=== PATIENT | female | born 1945 | race Caucasian/White ===

== ENCOUNTER → 2019-04-07 10:54 | Outpatient (CLI) | payer MEDICARE, OTHER, SELFPAY ==
[2019-03-01 08:34] VITALS: BMI 30.4
--- NOTE | 2019-04-08 09:55 | PFTCOMP ---
COMPLETE PULMONARY FUNCTION TEST INTERPRETATION Brief HPI: Patient is a 73 year old female, currently under the care of myself, who presents to [facility] for complete pulmonary function tests secondary to diagnosis of dyspnea. Respiratory therapist reports good effort and reproducible results. Interpretation: Forced expiration spirometry shows no large airways obstructive ventilatory defect with an FEV1 of 136% predicted. There is no significant bronchodilator response by strict ATS criteria. Spirograms are of good quality and plateau slowly, indicating slowly emptying areas of the lungs. The respiratory flow volume loop shows decreased expiratory flow rates at high lung volumes consistent with small airways obstruction. Lung volumes by body plethysmography show an elevated total lung capacity at 7.88 L, 152% predicted. All other lung volumes are increased symmetrically. Diffusion capacity by carbon monoxide is normal at 96% predicted. The airway resistance is normal. No previous pulmonary function tests were available for review. Impression: Pulmonary function tests are grossly within normal limits. There is some stigmata of small airways disease that may result in hyperinflation, but diffusing capacity is preserved.
== END ==
PROVIDERS: Family Provider Nurse Practitioner; PCP Nurse Practitioner; Referring Provider Internal Medicine Critical Care Medicine; Visit Provider Internal Medicine Critical Care Medicine
DX: R06.00 Dyspnea, unspecified (principal)
CPT/HCPCS: 94060; 94726; 94729

== ENCOUNTER → 2019-05-16 22:38 | Outpatient (CLI) | payer MEDICARE, OTHER, SELFPAY ==
[2019-03-01 08:34] VITALS: BMI 30.4
[2019-05-16 22:45] LABS: Absolute Lymphocyte Count 1.69 X10^3/uL (0.83-4.51); Absolute Neutrophil Count 3.4 X10^3/uL (2.0-7.7); Basophil# 0.04 X10^3/uL; Basophil% 0.7 % (0-1); Eosinophil# 0.07 X10^3/uL; Eosinophils% 1.2 % (0-5); Hematocrit 36.2 % (37-47); Hemoglobin 12.2 g/dL (12.0-15.0); Lymphocyte # 1.69 X10^3/ul (4.0); Mean Corp Hgb Conc 33.7 g/dL (32-36); Mean Corpuscular Hgb 29.8 pg (27.0-32.0); Mean Corpuscular Volume 88.5 fL (81-99); Mean Platelet Vol. 10.7 fl (6.2-12.0); Monocyte# 0.39 X10^3/uL; Monocyte% 6.9 % (0-10); NRBC Flagged by Analyzer 0 % (0-5); Neutrophil # 3.43 X10^3/uL (2.7-7.7); Platelet Count 258 K/mm3 (150-450); RBC Distribution Width CV 12.9 % (11.6-14.6); RBC Distribution Width SD 41.5 fl (35.1-43.9); Red Blood Count 4.09 M/mm3 (4.2-5.4); White Blood Count 5.6 K/mm3 (4.4-11.0)
[2019-05-16 23:01] LABS: ALB/GLOB Ratio 1.4 RATIO (0.9-2.4); AST(SGOT) 19 U/L (15-37); Alanine Aminotransfer ALT/SGPT 25 U/L (13-56); Albumin, Serum 4.1 g/dL (3.2-5.0); Alkaline Phosphatase 83 U/L (45-117); Anion Gap 6 (5-15); BUN 10 mg/dL (7-18); BUN/Creat Ratio 11.7 RATIO (10-20); Chloride 112 mmol/L (98-107); Cholesterol 198 mg/dL (200); Creatinine, Serum 0.85 mg/dL (0.55-1.02); EST Glomerular Filtration Rate 70 mL/min (>60); Est Glom Filt Rate - Afr Amer 84 mL/min (>60); Glucose 94 mg/dL (74-106); High Density Lipoprotein 56 mg/dL; Magnesium 2.1 mg/dL (1.6-2.6); Potassium 3.9 mmol/L (3.5-5.1); Protein, Total 7.1 g/dL (6.4-8.2); Sodium Level 143 mmol/L (136-145); Thyroid Stim Hormone (TSH) 1.99 uIU/mL (0.358-3.74); Triglycerides 168 mg/dL; Very Low Density Lipoprotein 34 mg/dL (5-40)
== END ==
PROVIDERS: Family Provider Nurse Practitioner; PCP Nurse Practitioner; Referring Provider Nurse Practitioner; Visit Provider Nurse Practitioner
DX: R10.13 Epigastric pain (principal); M54.9 Dorsalgia, unspecified; R07.89 Other chest pain; E03.9 Hypothyroidism, unspecified
CPT/HCPCS: 80053; 80061; 83735; 84443; 84484; 85025

== ENCOUNTER → 2020-01-11 | Outpatient (CLI) | payer MEDICARE, OTHER, SELFPAY ==
[2020-01-11 19:19] VITALS: BMI 31.1
[2020-01-11 21:45] LABS: Absolute Lymphocyte Count 2.47 X10^3/uL (0.83-4.51); Absolute Neutrophil Count 4.4 X10^3/uL (2.0-7.7); Basophil# 0.03 X10^3/uL; Basophil% 0.4 % (0-1); Eosinophil# 0.09 X10^3/uL; Eosinophils% 1.2 % (0-5); Hematocrit 34.9 % (37-47); Hemoglobin 11.5 g/dL (12.0-15.0); Lymphocyte # 2.47 X10^3/ul (4.0); Lymphocyte % 33.2 % (19-41); Mean Corpuscular Hgb 28.5 pg (27.0-32.0); Mean Corpuscular Volume 86.6 fL (81-99); Mean Platelet Vol. 10.3 fl (6.2-12.0); Monocyte# 0.49 X10^3/uL; Monocyte% 6.6 % (0-10); NRBC Flagged by Analyzer 0 % (0-5); Neutrophil # 4.35 X10^3/uL (2.7-7.7); Neutrophil % 58.3 % (47-70); Platelet Count 296 K/mm3 (150-450); RBC Distribution Width CV 12.9 % (11.6-14.6); RBC Distribution Width SD 40.6 fl (35.1-43.9); Red Blood Count 4.03 M/mm3 (4.2-5.4); White Blood Count 7.5 K/mm3 (4.4-11.0)
[2020-01-11 21:57] LABS: ALB/GLOB Ratio 1.1 RATIO (0.9-2.4); AST(SGOT) 16 U/L (15-37); Alanine Aminotransfer ALT/SGPT 26 U/L (13-56); Albumin, Serum 3.8 g/dL (3.2-5.0); Alkaline Phosphatase 86 U/L (45-117); Amylase 54 U/L (25-115); Anion Gap 6 (5-15); BUN 18 mg/dL (7-18); BUN/Creat Ratio 17.8 RATIO (10-20); Calcium,Total 9.1 mg/dL (8.5-10.1); Chloride 113 mmol/L (98-107); Creatinine, Serum 1.01 mg/dL (0.55-1.02); EST Glomerular Filtration Rate 57 mL/min (>60); Est Glom Filt Rate - Afr Amer 69 mL/min (>60); Globulin 3.5 g/dL (2.2-4.2); Glucose 111 mg/dL (74-106); Lipase 193 U/L (73-393); Potassium 3.8 mmol/L (3.5-5.1); Protein, Total 7.3 g/dL (6.4-8.2); Sodium Level 144 mmol/L (136-145)
== END | disposition home or self-care (01) ==
LOC: OLS.AHF 21:21 → LABSPEC 01-12 07:14
PROVIDERS: PCP Nurse Practitioner; Referring Provider Nurse Practitioner; Visit Provider Nurse Practitioner
DX: R10.32 Left lower quadrant pain (principal); R10.13 Epigastric pain
CPT/HCPCS: 80053; 82150; 83690; 85025

== ENCOUNTER 2021-08-01 22:10 | Outpatient (CLI) | payer MEDICARE, OTHER, SELFPAY ==
[2021-08-01 22:32] LABS: Absolute Lymphocyte Count 1.88 X10^3/uL (0.83-4.51); Absolute Neutrophil Count 5.9 X10^3/uL (2.0-7.7); Basophil# 0.04 X10^3/uL; Basophil% 0.5 % (0-1); Eosinophil# 0.09 X10^3/uL; Eosinophils% 1.1 % (0-5); Hematocrit 35.6 % (37-47); Lymphocyte # 1.88 X10^3/ul (0.83-4.51); Lymphocyte % 22.2 % (19-41); Mean Corp Hgb Conc 33.7 g/dL (32-36); Mean Corpuscular Hgb 29.1 pg (27.0-32.0); Mean Corpuscular Volume 86.4 fL (81-99); Mean Platelet Vol. 10.5 fl (6.2-12.0); Monocyte# 0.56 X10^3/uL; Monocyte% 6.6 % (0-10); NRBC Flagged by Analyzer 0 % (0-5); Neutrophil # 5.87 X10^3/uL (2.7-7.7); Neutrophil % 69.4 % (47-70); Platelet Count 307 K/mm3 (150-450); RBC Distribution Width CV 12.9 % (11.6-14.6); RBC Distribution Width SD 40.4 fl (35.1-43.9); Red Blood Count 4.12 M/mm3 (4.2-5.4); White Blood Count 8.5 K/mm3 (4.4-11.0)
[2021-08-01 22:45] LABS: AST(SGOT) 18 U/L (15-37); Alanine Aminotransfer ALT/SGPT 27 U/L (13-56); Albumin, Serum 3.8 g/dL (3.2-5.0); Alkaline Phosphatase 107 U/L (45-117); Anion Gap 7 (5-15); BUN 18 mg/dL (7-18); BUN/Creat Ratio 20.4 RATIO (10-20); Calcium,Total 8.7 mg/dL (8.5-10.1); Chloride 109 mmol/L (98-107); Cholesterol 184 mg/dL (200); Creatinine, Serum 0.88 mg/dL (0.55-1.02); EST Glomerular Filtration Rate 66 mL/min (>60); Est Glom Filt Rate - Afr Amer 80 mL/min (>60); Globulin 3.9 g/dL (2.2-4.2); Glucose 118 mg/dL (74-106); High Density Lipoprotein 47 mg/dL; Potassium 3.9 mmol/L (3.5-5.1); Protein, Total 7.7 g/dL (6.4-8.2); Sodium Level 139 mmol/L (136-145); Triglycerides 181 mg/dL; Very Low Density Lipoprotein 36 mg/dL (5-40)
== END 2021-08-01 23:59 | disposition home or self-care (01) ==
PROVIDERS: PCP Nurse Practitioner; Visit Provider Nurse Practitioner
DX: K57.32 Diverticulitis of large intestine without perforation or abscess without bleeding (principal); E78.00 Pure hypercholesterolemia, unspecified
CPT/HCPCS: 80053; 80061; 85025

== ENCOUNTER → 2022-01-14 | Outpatient (CLI) | payer MEDICARE, OTHER, SELFPAY | END | disposition home or self-care (01) | PROVIDERS: PCP Nurse Practitioner; Visit Provider Nurse Practitioner | DX: M54.9 Dorsalgia, unspecified (principal) | CPT/HCPCS: 87086; 87088 ==

== ENCOUNTER → 2022-03-14 | Outpatient (CLI) | payer MEDICARE, OTHER, SELFPAY | END | disposition home or self-care (01) | PROVIDERS: PCP Nurse Practitioner; Visit Provider Nurse Practitioner | DX: M54.9 Dorsalgia, unspecified (principal) | CPT/HCPCS: 87086; 87088 ==

== ENCOUNTER → 2023-01-29 | Outpatient (CLI) | payer MEDICARE, OTHER, SELFPAY ==
[2023-01-29 22:38] LABS: Absolute Neutrophil Count 5.6 X10^3/uL (2.0-7.7); Basophil# 0.04 X10^3/uL; Basophil% 0.4 % (0-1); Eosinophil# 0.08 X10^3/uL; Eosinophils% 0.9 % (0-5); Hematocrit 37.1 % (37-47); Lymphocyte % 27.7 % (19-41); Mean Corp Hgb Conc 32.3 g/dL (32-36); Mean Corpuscular Hgb 28.8 pg (27.0-32.0); Mean Platelet Vol. 10.3 fl (6.2-12.0); Monocyte# 0.76 X10^3/uL; Monocyte% 8.4 % (0-10); NRBC Flagged by Analyzer 0 % (0-5); Neutrophil # 5.64 X10^3/uL (2.7-7.7); Neutrophil % 62.4 % (47-70); Platelet Count 291 K/mm3 (150-450); RBC Distribution Width CV 13.2 % (11.6-14.6); RBC Distribution Width SD 43.2 fl (35.1-43.9); Red Blood Count 4.17 M/mm3 (4.2-5.4)
[2023-01-29 23:02] LABS: AST(SGOT) 14 U/L (15-37); Alanine Aminotransfer ALT/SGPT 22 U/L (13-56); Albumin, Serum 3.7 g/dL (3.2-5.0); Alkaline Phosphatase 87 U/L (45-117); Anion Gap 7 (5-15); BUN 16 mg/dL (7-18); Calcium,Total 8.9 mg/dL (8.5-10.1); Chloride 109 mmol/L (98-107); Creatinine, Serum 0.89 mg/dL (0.55-1.02); EST Glomerular Filtration Rate 66 mL/min (>60); Est Glom Filt Rate - Afr Amer 79 mL/min (>60); Globulin 3.6 g/dL (2.2-4.2); Glucose 133 mg/dL (74-106); Potassium 3.5 mmol/L (3.5-5.1); Protein, Total 7.3 g/dL (6.4-8.2); Sodium Level 143 mmol/L (136-145); Thyroid Stim Hormone (TSH) 2.89 uIU/mL (0.358-3.74)
== END | disposition home or self-care (01) ==
PROVIDERS: PCP Nurse Practitioner; Visit Provider Nurse Practitioner
DX: K57.32 Diverticulitis of large intestine without perforation or abscess without bleeding (principal); M54.9 Dorsalgia, unspecified; R06.09 Other forms of dyspnea
CPT/HCPCS: 80053; 84443; 85025

== ENCOUNTER → 2024-03-14 | Outpatient (CLI) | payer MEDICARE, OTHER, SELFPAY | END | disposition home or self-care (01) | PROVIDERS: PCP Nurse Practitioner; Referring Provider Nurse Practitioner; Visit Provider Nurse Practitioner | DX: N30.90 Cystitis, unspecified without hematuria (principal); R10.30 Lower abdominal pain, unspecified | CPT/HCPCS: 87086 ==

== ENCOUNTER → 2025-03-01 | Outpatient (CLI) | payer MEDICARE, OTHER, SELFPAY ==
--- OUTSIDE RECORDS SUMMARY | 2025-03-01 21:34 | XMS RPT_ITS | CCD ---
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 mg/dL Normal 8.5-10.2 [facility] Comment on above: Order Comment: Speci men Type: BLOOD SPECIMEN Ordering Facility: [facility] Address: [address] [place] [address] Performed By: #### 2 4323-8, 0-3 #### [facility] CLIA [id number] [address] [place] [address] [place] Chloride [Moles/Vol] 104 mmol/L Normal 98-107 [facility] Comment on above: Order Comment: Speci men Type: BLOOD SPECIMEN Ordering Facility: [facility] Address: [address] [place] [address] Performed By: #### 2 4323-8, 0-3 #### [facility] CLIA [id number] [address] [place] [address] [place] CO2 [Moles/Vol] 26 mmol/L Normal 22-30 [facility] Comment on above: Order Comment: Speci men Type: BLOOD SPECIMEN Ordering Facility: [facility] Address: [address] [place] [address] Performed By: #### 2 4323-8, 3040-3 #### [facility] CLIA [id number] [address] [place] [address] [facility] Creatinine [Mass/Vol] 0.84 mg/dL Normal 0.58-0.96 [facility] Comment on above: Order Comment: Sharon negro Type: BLOOD SPECIMEN Ordering Facility: [facility] Address: [address] [place] [address] Performed By: #### 2 4323-8, 3040-3 #### [facility] CLIA [id number] [address] [place] [id number] [facility] Creatinine and Glomerular filtration rate.predicted panel (S/P/Bld) 72 mL/min/1.73m??? Normal >=60 [facility] Comment on above: Order Comment: Sharon negro Type: BLOOD SPECIMEN Ordering Facility: [facility] Address: [address] [place] [address] Result Comment: Estefany mated Glomerular Filtration Rate (eGFR) is calculated using the 2020 CKD-EPI creatinine equation. This equation utilizes serum creatinine, sex, and age as parameters. The creatinine assay has traceable calibration to isotope dilution-mass spectrometry. Refer to KDIGO guidelines for clinical interpretation. In patients with unstable renal function, e.g. those with acute kidney injury, the eGFR may not accurately reflect actual GFR. Performed By: #### 2 4323-8, 0-3 #### [facility] CLIA [id number] [address] [place] [id number] [place] [facility] Glucose [Mass/Vol] 95 mg/dL Normal 74-99 [facility] Comment on above: Order Comment: Sharon negro Type: BLOOD SPECIMEN Ordering Facility: [facility] Address: [address] [place] [address] Result Comment: The [place] Diabetes [employer] (ADA) provides guidance for cutoff values for fasting glucose and random glucose. The ADA defines fasting as no caloric intake for at least 8 hours. Fasting plasma glucose results between 100 to 125 mg/dL indicate increased risk for diabetes (prediabetes). Fasting plasma glucose results greater than or equal to 126 mg/dL meet the criteria for diagnosis of diabetes. In the absence of unequivocal hyperglycemia, results should be confirmed by repeat testing. In a patient with classic symptoms of hyperglycemia or hyperglycemic crisis, random plasma glucose results greater than or equal to 200 mg/dL meet the criteria for diagnosis of diabetes. Reference: Standards of Medical Care in Diabetes 2016, [place] [employer] Association. Diabetes Care. 2016.39(Suppl 1). Performed By: #### 2 4323-8, 3040-3 #### [facility] CLIA [id number] [address] [place] [address] [place] Potassium [Moles/Vol] 3.6 mmol/L Low 3.7-5.1 [facility] Comment on above: Order Comment: Speci men Type: BLOOD SPECIMEN Ordering Facility: [facility] Address: [address] [place] [id number] Performed By: #### 2 4323-8, 0-3 #### [facility] CLIA [id number] [address] [place] [address] [place] Protein [Mass/Vol] 6.9 g/dL Normal 6.3-8.0 [facility] Comment on above: Order Comment: Speci men Type: BLOOD SPECIMEN Ordering Facility: [facility] Address: [address] [place] [id number] Performed By: #### 2 4323-8, 0-3 #### [facility] CLIA [id number] [address] [place] [address] [place] Sodium [Moles/Vol] 141 mmol/L Normal 136-144 [facility] Comment on above: Order Comment: Speci men Type: BLOOD SPECIMEN Ordering Facility: [facility] Address: [address] [place] [address] Performed By: #### 2 4323-8, 3040-3 #### [facility] CLIA [id number] [address] [place] [address] [place] Urea nitrogen [Mass/Vol] 11 mg/dL Normal 7-21 [facility] Comment on above: Order Comment: Speci men Type: BLOOD SPECIMEN Ordering Facility: [facility] Address: [address] [place] [address] Performed By: #### 2 4323-8, 3040-3 #### [facility] CLIA [id number] [address] [place] [address] [facility] ED NOTEon 03-17-2024 ED NOTE HNO ID: [id number] Author: NGOZI SHARPE RN Service: ? Author Type: Registered Nurse Type: ED Notes Filed: 03/18/2024 11:39 Note Text: Emergency Services: ED Call Back Questionnaire SERVICE DATE: 03/17/2024 Are you feeling better? Yes Any questions about discharge instructions and follow-up care? No Were you able to make a follow up appointment? No, referred to appointment hotline Do you have any further questions? No Is there anything that we could have done differently to improve your ED visit? No No there is no one I want to recognize that was involved with my care. SIGNATURE: Ngozi Sharpe RN PATIENT NAME: Sloane Montano DATE: March 18, 2024 TIME: 11:37 AM Normal [facility] ED NOTE HNO ID: [id number] Author: ART KAMINSKI RN Service: Emergency Medicine Author Type: Registered Nurse Type: ED Notes Filed: 03/17/2024 08:25 Note Text: Bladder scan 198, pt sts she has a bladder sling and that is not uncommon for her Normal [facility] ED NOTE HNO ID: [id number] Author: HENRIK MUSTAFA RN Service: Emergency Medicine Author Type: Registered Nurse Type: ED Notes Filed: 03/17/2024 05:19 Note Text: Patient states that she started having lower abdominal pain that started Thursday. Denies N/V/D. States that she saw Dr. Avila on Thursday, who prescribed Cipro and Flagyl. Patient took one dose and felt this made it worse, so she did not take anymore. Patient has been taking Tylenol, last at 0200. States that she does have dysuria at this time. Has had intermittent fever. Normal [facility] ED PROV NOTEon 03-17-2024 ED PROV NOTE HNO ID: [id number] Author: EVI HALL MD Service: ? Author Type: Physician Type: ED Provider Notes Filed: 03/17/2024 09:28 Note Text: ED CONTINUATION OF CARE NOTE Code Status: Full Code Assumed care from: Dr. Dean Presentation / Findings / Interventions / Plan / Items to Follow Up: Patient with continued paroxysms of pain, also pain and spasms post void. CT negative, labs/UA negative. Consideration for bladder spasms. Oxybutynin ordered and therapeutic interchange given to patient. Patient counseled about results and concern for her pain. Patient anxious to leave. Counseled about sx for which to return to ED. Counseled about medication use. All questions answered. Discharged home in stable condition. Clinical Impressions as of 03/17/24927 Lower abdominal pain Bladder spasms Medical Decision Making SIGNATURE: Evi Hall MD PATIENT NAME: Sloane Montano DATE: March 17, 2024 TIME: 9:25 AM PAGER/CONTACT #: EVI HALL 03/17/24927 Normal [facility] ED PROV NOTE HNO ID: [id number] Author: LILA DEAN DO Service: Emergency Medicine Author Type: Physician Type: ED Provider Notes Filed: 03/17/2024 06:56 Note Text: ED Provider Note Patient Name: Sloane Montano : 1945 SERVICE DATE: 03/17/24 History Patient presents with: Abdominal Pain Dysuria Sloane Montano is a 78 year old female with history of diverticulitis who presents with Abdominal Pain and Dysuria. - Symptoms began Thursday. - Severity: 11/15 - Timing: constant - Quality: aching, cramping - Symptoms are associated with lower abdominal pain, fever (reports no higher than 100). - Symptoms are not associated with chest pain, diarrhea, nausea, rash, shortness of breath, vomiting, hematuria, vaginal bleeding or discharge, flank pain. Patient presents with lower abdominal pain that started on Thursday. She states that the pain is more in her lower mid and left lower abdomen. She states the pain will occasionally radiate towards her back. She states that she otherwise has no back pain or flank pain. She states that she has pain in her abdomen during and after she urinates, but states it is not burning when she urinates. She states that she has no hematuria. She states that she has had a fever up to 100. She has been taking Tylenol for her pain. She states that she has been taking no more than 500 mg every 4-6 hours. She states she has had no nausea, vomiting, or diarrhea. She states she had a bowel movement yesterday which was normal for her. She denies dark or bloody stools. She reports prior hysterectomy and cholecystectomy and also states she thinks she had an appendectomy at the same time she had the hysterectomy. Patient reports she did go and see her primary on Thursday for her symptoms. She states she had a urine test showing that her pH was high, but otherwise did not appear infected. She was then prescribed Cipro and Flagyl with her history of diverticulitis and states she took 1 dose of each Thursday night, but that the pain increased in her lower abdomen afterwards, so she has not taken any additional antibiotics other than the one dose on Thursday. PAST MEDICAL HISTORY Diagnosis Date Gallstones 02/15/2014 Headache(784.0) Migraines, not for 10 years Sigmoid diverticulitis 02/15/2014 Unspecified urinary incontinence resolved with surgery PAST SURGICAL HISTORY Procedure Laterality Date PAST SURGICAL HISTORY OF Bladder surgery (Sling) REMOVAL GALLBLADDER 11/09/2014 TOTAL ABDOMINAL HYSTERECT W/WO RMVL TUBE OVARY 1978 FOR ENDOMETRIOSIS XCAPSL CTRC RMVL INSJ IO LENS PROSTH W/O ECP Left Cataract Extraction with TORIC IOL XCAPSL CTRC RMVL INSJ IO LENS PROSTH W/O ECP Right 08/04/2018 FAMILY HISTORY Problem Relation Age of Onset Diabetes Mother TYPE II other (OSTEOARTHRITIS) Mother other (lung cancer) Mother Macular Degen Father other (EPILEPSY) Father other (PANCREATIC CANCER) Maternal Grandmother Social History Tobacco Use Smoking status: Former Current packs/day: 0.00 Types: Cigarettes Start date: 11/06/1976 Quit date: 11/06/1984 Years since quittin.3 Smokeless tobacco: Never Vaping Use Vaping status: Never Used Substance and Sexual Activity Alcohol use: No Drug use: No Sexual activity: Not on file ALLERGIES Allergen Reactions Ketorolac Other: See Comments Headaches Sulfa (Sulfonamide * Hives Review of Systems Constitutional: Positive for fever. Respiratory: Negative for shortness of breath. Cardiovascular: Negative for chest pain. Gastrointestinal: Positive for abdominal pain. Negative for diarrhea, nausea and vomiting. Genitourinary: Positive for dysuria (not burning when she urinates, but more pain in her lower abdomen during and after urinating). Negative for flank pain, hematuria, vaginal bleeding and vaginal discharge. Musculoskeletal: Negative for back pain. Skin: Negative for rash. Neurological: Negative for weakness and numbness. Psychiatric/Behavioral: Negative for agitation and confusion. Physical Exam Vitals [03/17/24 0513] BP Pulse Temp Temp src Resp SpO2 Weight Height 166/78 85 36.2 ?C (97.1 ?F) Temporal 18 95 % 81.6 kg (180 lb) -- Physical Exam Vitals and nursing note reviewed. Constitutional: Appearance: She is not toxic-appearing or diaphoretic. HENT: Head: Normocephalic and atraumatic. Eyes: General: No scleral icterus. Conjunctiva/sclera: Conjunctivae normal. Cardiovascular: Rate and Rhythm: Normal rate and regular rhythm. Pulses: Normal pulses. Pulmonary: Effort: Pulmonary effort is normal. Breath sounds: Normal breath sounds. Abdominal: General: Abdomen is flat. Bowel sounds are normal. There is no distension. Palpations: Abdomen is soft. Tenderness: There is abdominal tenderness in the suprapubic area and left lower quadrant. There is rebound. There is no right CVA tenderness, left CVA tenderne (more content not included)... Normal [facility] Lactate (Bld) [Moles/Vol]on 03-17-2024 Lactate [Moles/Vol] 1.6 mmol/L Normal 0.5-2.2 [facility] Comment on above: Order Comment: Speci men Type: BLOOD SPECIMEN Ordering Facility: [facility] Address: [address] [place] [address] Performed By: #### 3 2693-4 #### [facility] CLIA [id number] [address] [place] [address] [place] Lipase SerPl-cCncon 03-17-20 24 Lipase [Catalytic activity/Vol] 38 U/L Normal 16-61 [facility] Comment on above: Order Comment: Speci men Type: BLOOD SPECIMEN Ordering Facility: [facility] Address: [address] [place] [address] Performed By: #### 2 4323-8, 3040-3 #### [facility] CLIA [id number] [address] [place] [address] [facility] Urinalysis complete panel (U )on 03-17-2024 Bilirubin Ql (U) Negative Normal Negative [facility] Comment on above: Order Comment: Speci men Type: URINE SPECIMEN Ordering Facility: [facility] Address: [address] [place] [address] Performed By: #### 2 4356-8 #### [facility] CLIA [id number] [address] [place] [address] [facility] [place] Clarity (Unsp spec) Slightly Cloudy Abnormal Clear [facility] Comment on above: Order Comment: Speci men Type: URINE SPECIMEN Ordering Facility: [facility] Address: [address] [place] [address] Performed By: #### 2 4356-8 #### [facility] CLIA [id number] [address] [place] [address] [facility] Color (U) Yellow Normal Yellow [facility] Comment on above: Order Comment: Speci men Type: URINE SPECIMEN Ordering Facility: [facility] Address: [address] [place] [address] Performed By: #### 2 4356-8 #### [facility] CLIA [id number] [address] [place] [address] [facility] [place] Epithelial cells LM.HPF (Urine sed) [#/Area] Few Normal [facility] Comment on above: Order Comment: Speci men Type: URINE SPECIMEN Ordering Facility: [facility] Address: [address] [place] [address] Result Comment: Few Performed By: #### 2 4356-8 #### [facility] CLIA [id number] [address] [place] [address] [facility] Glucose Test strip (U) [Mass/Vol] Negative Normal Negative [facility] Comment on above: Order Comment: Speci men Type: URINE SPECIMEN Ordering Facility: [facility] Address: [address] [place], [place] [address] Performed By: #### 2 4356-8 #### [facility] CLIA [id number] [address] [place] [address] [facility] Hemoglobin Ql (U) Negative Normal Negative [facility] Comment on above: Order Comment: Speci men Type: URINE SPECIMEN Ordering Facility: [facility] Address: [address] [place] [address] Performed By: #### 2 4356-8 #### [facility] CLIA [id number] [address] [place] [address] [place] Ketones Ql (U) Negative Normal Negative [facility] Comment on above: Order Comment: Speci men Type: URINE SPECIMEN Ordering Facility: [facility] Address: [address] [place] [address] Performed By: #### 2 4356-8 #### [facility] CLIA [id number] [address] [place] [address] [place] Leukocyte esterase Test strip Ql (U) Negative Normal Negative [facility] Comment on above: Order Comment: Speci men Type: URINE SPECIMEN Ordering Facility: [facility] Address: [address] [place] [address] Performed By: #### 2 4356-8 #### [facility] CLIA [id number] [address] [place] [address] [place] Nitrite Ql (U) Negative Normal Negative [facility] Comment on above: Order Comment: Speci men Type: URINE SPECIMEN Ordering Facility: [facility] Address: [address] [place] [address] Performed By: #### 2 4356-8 #### [facility] CLIA [id number] [address] [place] [address] [facility] [place] pH (U) 7.0 [pH] Normal 5.0-8.0 [facility] Comment on above: Order Comment: Speci men Type: URINE SPECIMEN Ordering Facility: [facility] Address: [address] [place] [address] Performed By: #### 2 4356-8 #### [facility] CLIA [id number] [address] Protein (U) [Mass/Vol] Negative Normal Negative [facility] Comment on above: Order Comment: Speci men Type: URINE SPECIMEN Ordering Facility: [facility] Address: [address] [place] [address] Performed By: #### 2 4356-8 #### [facility] CLIA [id number] [address] RBC LM.HPF (Urine sed) [#/Area] 0-3 /HPF Normal 0-3 /HPF [facility] Comment on above: Order Comment: Speci men Type: URINE SPECIMEN Ordering Facility: [facility] Address: [address] [place] [address] Performed By: #### 2 4356-8 #### [facility] CLIA [id number] [address] [place] [address] Specific gravity (U) [Rel density] 1.010 Normal 1.005-1.030 [facility] Comment on above: Order Comment: Speci men Type: URINE SPECIMEN Ordering Facility: [facility] Address: [address] [place] [address] Performed By: #### 2 4356-8 #### [facility] CLIA [id number] [address] Urobilinogen Ql (U) 0.2 EU/dL Normal 0.2-1.0 EU/dL [facility] Comment on above: Order Comment: Speci men Type: URINE SPECIMEN Ordering Facility: [facility] Address: [address] [place] [address] Performed By: #### 2 4356-8 #### [facility] CLIA [id number] [address] [place] WBC LM.HPF (Urine sed) [#/Area] 0-5 /HPF Normal 0-5 /HPF [facility] Comment on above: Order Comment: Speci men Type: URINE SPECIMEN Ordering Facility: [facility] Address: [address], [place] [address] Performed By: #### 2 4356-8 #### [facility] CLIA [id number] [address] [place] [address] [place] Urine Cultureon 03-15-2024 [facility] Culture exhibits no growth. Normal Comment on above: Performed By: #### M 100.2200 #### Laboratory [address] [place], [address] Absolute lymphocyte countOrd ered By: Tru Avila on 01-29-2023 Lymphocytes Auto (Unsp spec) [#/Vol] 2.50 10*3/uL 0.83-4.51 Basophil percentageOrdered B y: Tru Avila on 01-29-2023 Basophils/100 WBC (Bld) 0.4 % 0-1 Bilirubin [Mass/Vol] 0.30 mg/dL 0.20-1.00 [facility] Comment on above: For patients on eltr ombopag therapy, use of Dimension [place] TBIL is not recommended. Chloride [Moles/Vol] 109 mmol/L 98-107 [facility] Eosinophils/100 WBC (Bld) 0.9 % 0-5 Glucose [Mass/Vol] 133 mg/dL 74-106 [facility] Comment on above: Fasting Glucose resu lt greater than or equal to 126 mg/dL suggests DIABETES MELLITUS per A.D.A. criteria. Neutrophils (Bld) [#/Vol] 5.6 10*3/uL 2.0-7.7 Neutrophils/100 WBC (Bld) 62.4 % 47-70 Potassium [Moles/Vol] 3.5 mmol/L 3.5-5.1 [facility] Protein [Mass/Vol] 7.3 g/dL 6.4-8.2 [facility] Sodium [Moles/Vol] 143 mmol/L 136-145 [facility] WBC (Bld) [#/Vol] 9.0 10*3/uL 4.4-11.0 [facility] Blood erythrocytes count (nu mber/volume)Ordered By: Tru Avila on 01-29-2023 RBC (Bld) [#/Vol] 4.17 10*6/uL 4.2-5.4 [facility] Blood hemoglobin measurement (mass/volume)Ordered By: Tru Avila on 01-29-2023 Hemoglobin (Bld) [Mass/Vol] 12.0 g/dL 12.0-15.0 Blood lymphocytes/100 leukoc ytesOrdered By: Tru Avila on 01-29-2023 Lymphocytes/100 WBC (Bld) 27.7 % 19-41 Blood monocytes/100 leukocyt esOrdered By: Tru Avila on 01-29-2023 Monocytes/100 WBC (Bld) 8.4 % 0-10 Blood platelet mean volumeOr dered By: Tru Avila on 01-29-2023 Platelet mean volume (Bld) [Entitic vol] 10.3 fL 6.2-12.0 Determination of erythrocyte mean corpuscular volume (MCV)Ordered By: Tur Avila on 01-29-2023 MCV (RBC) [Entitic vol] 89.0 fL 81-99 Hematocrit Auto (Bld) [Volum e fraction]Ordered By: Tru Avila on 01-29-2023 Hematocrit (Bld) [Volume fraction] 37.1 % 37-47 Laboratory - Chemistry and C hemistry - challengeOrdered By: Tru Avila on 01-29-2023 ALP [Catalytic activity/Vol] 87 U/L 45-117 ALT [Catalytic activity/Vol] 22 U/L 13-56 CO2 [Moles/Vol] 27.0 mmol/L 21.0-32.0 Globulin (S) [Mass/Vol] 3.6 g/dL 2.2-4.2 Urea nitrogen/Creatinine [Mass ratio] 18.0 mg/mg 10-20 Laboratory - Hematology and Cell countsOrdered By: Tru Avila on 01-29-2023 Erythrocyte distribution width (RBC) [Entitic vol] 43.2 fL 35.1-43.9 Erythrocyte distribution width (RBC) [Ratio] 13.2 % 11.6-14.6 Immature granulocytes/100 WBC (Bld) 0.200 % 0.0-0.9 Comment on above: IG% - Immature Granu locytes (promyelocytes, myelocytes and metamyelocytes) > 1% indicates that a LEFT SHIFT is Present. MCH (RBC) [Entitic mass] 28.8 pg 27.0-32.0 Nucleated RBC/100 WBC (Bld) [Ratio] 0 % 0-5 MCHC Auto (RBC) [Mass/Vol]Or dered By: Tru Avila on 01-29-2023 MCHC (RBC) [Mass/Vol] 32.3 g/dL 32-36 [facility] No Panel InformationOrdered By: Tru Avila on 01-29-2023 Estimated GFR (MDRD) Amer 79 mL/min >60 Comment on above: GFR Calc Estimated GFR (MDRD) Non-Af Amer 66 mL/min >60 Comment on above: Non- GFR Calc Thyroid Stimulating Hormone (TSH) 2.89 uIU/mL 0.358-3.74 Platelets bldOrdered By: Samir Avila on 01-29-2023 Platelets (Bld) [#/Vol] 291 10*3/uL 150-450 Serum or plasma albumin inderjit urement (mass/volume)Ordered By: Tru Avila on 01-29-2023 Albumin [Mass/Vol] 3.7 g/dL 3.2-5.0 [facility] Serum or plasma albumin/glob ulin mass ratioOrdered By: Tru Avila on 01-29-2023 Albumin/Globulin [Mass ratio] 1.0 {ratio} 0.9-2.4 Serum or plasma calcium inderjit urement (mass/volume)Ordered By: Tru Avila on 01-29-2023 Calcium [Mass/Vol] 8.9 mg/dL 8.5-10.1 [facility] Serum or plasma creatinine m easurement (mass/volume)Ordered By: Tru Avila on 01-29-2023 Creatinine [Mass/Vol] 0.89 mg/dL 0.55-1.02 [facility] Comment on above: The validity of the calculated GFR & GFRAA in patients over 70 years has not been determined. Clinical correlation is essential. Serum or plasma urea nitroge n measurement (mass/volume)Ordered By: Tru Avila on 01-29-2023 Urea nitrogen [Mass/Vol] 16 mg/dL 7-18 Thin prep Papanicolaou smear with manual screeningOrdered By: Tru Avila on 01-29-2023 Thin prep Papanicolaou smear with manual screening 14 U/L 15-37 Thin prep Papanicolaou smear with manual screening 7 5-15 CARSON SCREENINGon 03-26-2022 [facility] Laboratory - Chemistry and C hemistry - challengeon 03-14-2022 Bilirubin Ql (U) Negative Work Phone: Glucose Ql (U) Negative Work Phone: Ketones Ql (U) Negative Work Phone: pH (U) 6.5 [pH] Work Phone: Specific gravity (U) [Rel density] 1.005 Work Phone: Urobilinogen (U) [Mass/Vol] 0.8880363 mg/dL Work Phone: Laboratory - Hematology and Cell countson 03-14-2022 Hemoglobin Ql (U) Negative Work Phone: Laboratory - Specimen inform ationon 03-14-2022 Clarity (U) Clear Work Phone: Color (U) Colorless Work Phone: Laboratory - Urinalysison Nitrite Ql (U) Negative Work Phone: Protein Ql (U) Negative Work Phone: No Panel Informationon 03-14 Urine Leukocytes Negatve Work Phone: Urine Non-Hemolyzed Blood Work Phone: Laboratory - Chemistry and C hemistry - challengeon 01-14-2022 Bilirubin Ql (U) Negative Work Phone: Glucose Ql (U) Negative Work Phone: Ketones Ql (U) Negative Work Phone: [phone] pH (U) 7.0 [pH] Work Phone: Specific gravity (U) [Rel density] 1.015 Work Phone: Urobilinogen (U) [Mass/Vol] 0.6013039 mg/dL Work Phone: Laboratory - Hematology and Cell countson 01-14-2022 Hemoglobin Ql (U) Hemolyzed Work Phone: Laboratory - Specimen inform ationon 01-14-2022 Clarity (U) Clear Work Phone: Color (U) Yellow Work Phone: Laboratory - Urinalysison Nitrite Ql (U) Negative Work Phone: Protein Ql (U) Negative Work Phone: No Panel Informationon 01-14 Urine Leukocytes Positive Work Phone: Urine Non-Hemolyzed Blood Trace Work Phone: US ABD AORTAon 08-30-2020 US ABD AORTA Final Report DATE OF EXAM: Aug 30 2020 8:28AM LDU 1075 - US ABD AORTA / PROCEDURE REASON: m54.6 Physician Interpretation EXAMINATION: COMPLETE ABDOMINAL AORTA ULTRASOUND WITH DOPPLER IMAGING HISTORY: Chest pain and back pain. Rule out abdominal aortic aneurysm. TECHNIQUE: Recinos scale sonography with color Doppler and spectral Doppler (duplex) imaging of the abdominal aorta and common iliac arteries bilaterally was performed. Images were obtained and stored in a permanent archive. MQ: USAOC_1 COMPARISON: None RESULT: AORTA (AP x TV): Proximal: 2.2 cm x 2.2 cm Mid (level of renal arteries): 1.4 cm x 1.8 cm Distal: 1.3 cm x 1.5 cm Common Iliac Arteries (AP x TV): Right: 0.7 cm x 1.1 cm Left: 1 cm x 1.1 cm Atherosclerotic plaque: present Doppler: Abdominal aorta is patent with no stenosis or dissection. Normal spectral waveforms. IMPRESSION: No evidence for abdominal aortic aneurysm. Core Filer: [facility] Transcribe Date/Time: Aug 30 2020 8:39A Dictated by : JOLENE MEDINA MD This examination was interpreted and the report reviewed and electronically signed by: JOLENE MEDINA MD on Aug 30 2020 8:40AM EST Normal [facility] Culture, urine Bacteria identified Cx Nom (U) Presumptive E. coli Work Phone: Bacteria identified Cx Nom (U) Mixed Gram Pos & Gram Neg Org Work Phone: Vital Signs Date Time Vital Sign Value Performing Clinician Faci lity 01-29-2023 18:01-0400 Body height 165.1 cm [facility] 01-29-2023 18:01-0400 Body mass index (BMI) [Ratio] 30.4 kg/m2 01-29-2023 18:01-0400 Body temperature 97.7 [degF] [facility] 01-29-2023 18:01-0400 Body weight 83 kg [facility] 01-29-2023 18:01-0400 Diastolic blood pressure 70 mm[Hg] 01-29-2023 18:01-0400 Heart rate 83 /min [facility] 01-29-2023 18:01-0400 Respiratory rate 18 /min [facility] 01-29-2023 18:01-0400 SaO2% (BldA) [Mass fraction] 96 % 01-29-2023 18:01-0400 Systolic blood pressure 138 mm[Hg] 03-14-2022 16:43-0400 Body height 165.1 cm [facility] Work Phone: 03-14-2022 16:43-0400 Body mass index (BMI) [Ratio] 30.9 kg/m2 Work Phone: 03-14-2022 16:43-0400 Body temperature 97.6 [degF] [facility] Work Phone: 03-14-2022 16:43-0400 Body weight 84.36 kg [facility] Work Phone: 03-14-2022 16:43-0400 Diastolic blood pressure 90 mm[Hg] Work Phone: 03-14-2022 16:43-0400 Heart rate 81 /min [facility] Work Phone: 03-14-2022 16:43-0400 Respiratory rate 18 /min [facility] Work Phone: 03-14-2022 16:43-0400 SaO2% (BldA) [Mass fraction] 98 % Work Phone: 03-14-2022 16:43-0400 Systolic blood pressure 122 mm[Hg] Work Phone: 01-14-2022 18:06-0400 Body height 165.1 cm [facility] Work Phone: 01-14-2022 18:06-0400 Body mass index (BMI) [Ratio] 30.7 kg/m2 Work Phone: 01-14-2022 18:06-0400 Body temperature 97.3 [degF] [facility] Work Phone: 01-14-2022 18:06-0400 Body weight 83.91 kg [facility] Work Phone: 01-14-2022 18:06-0400 Diastolic blood pressure 74 mm[Hg] Work Phone: 01-14-2022 18:06-0400 Heart rate 74 /min [facility] Work Phone: 01-14-2022 18:06-0400 Respiratory rate 18 /min [facility] Work Phone: 01-14-2022 18:06-0400 SaO2% (BldA) [Mass fraction] 96 % Work Phone: 01-14-2022 18:06-0400 Systolic blood pressure 154 mm[Hg] Work Phone: 11-26-2021 16:04-0400 Body mass index (BMI) [Ratio] 30.6 kg/m2 Work Phone: 11-26-2021 16:04-0400 Body temperature 97.5 [degF] [facility] Work Phone: 11-26-2021 16:04-0400 Body weight 83.46 kg [facility] Work Phone: 11-26-2021 16:04-0400 Diastolic blood pressure 60 mm[Hg] Work Phone: 11-26-2021 16:04-0400 Heart rate 72 /min [facility] Work Phone: 11-26-2021 16:04-0400 Respiratory rate 18 /min [facility] Work Phone: 11-26-2021 16:04-0400 SaO2% (BldA) [Mass fraction] 95 % Work Phone: 11-26-2021 16:04-0400 Systolic blood pressure 118 mm[Hg] Work Phone: Encounters Encounter Date Encounter Type Care Provider Facility Start: 05-18-2024 ambulatory TRU AVILA [facility] ity:[facility] Start: 03-17-2024 End: 03-17-2024 Emergency department patient visit TRU AVILA Facility:[facility] Start: 03-14-2024 End: 03-14-2024 ambulatory Tru Avila JOB PRINTER Facility: Start: 04-22-2023 Documentation procedure Mammog nimesh Coordinator [facility] Start: 04-22-2023 Letter encounter Mammography Coordinator [facility] NOT LISTED Start: 04-21-2023 End: 04-21-2023 Subsequent hospital visit by physician Mammo/Bone Density [facility] Comment on above: Breast cancer screen ing by mammogram [Z12.31] Start: 01-29-2023 End: 01-29-2023 ambulatory Work Phone: Start: 01-29-2023 End: 01-29-2023 Patient encounter procedure -Laboratory, Specimen Work Phone: Start: 03-26-2022 End: 03-26-2022 Subsequent hospital visit by physician Mammo/Bone Density [facility] Comment on above: Encounter for screen ing mammogram for malignant neoplasm of breast [Z12.31] Start: 03-14-2022 End: 03-14-2022 ambulatory Work Phone: Start: 03-14-2022 End: 03-14-2022 Patient encounter procedure -Laboratory, Specimen Start: 03-06-2022 End: 03-06-2022 ambulatory TRU AVILA Facility:[facility] Start: 03-06-2022 End: 03-06-2022 Patient encounter procedure Rahel Rajput OD Work Phone: Ophthalmology Comment on above: Posterior vitreous d etachment of both eyes (Primary Dx); Dry eye syndrome of both eyes; Pseudophakia of both eyes; Refractive error Start: 01-14-2022 End: 01-14-2022 Patient encounter procedure -Laboratory, Specimen Procedures Date Procedure Procedure Detail Performing Clinician Start: 03-26-2022 Screening mammograph y bi 2-view breast inc cad Tru Avila NURSE RESEARCHER.INTERNAL GRINDER Work Phone: Urine culture Plan of Treatment Date Care Activity Detail Author Start: 02-06-2023 Covid-19 Vaccine ( season) Covid-19 Vaccine () [facility] Start: 02-06-2023 Influenza vaccination Influenza Vacc ine (#1) [facility] Start: 06-08-2022 Advance Directive Discussion Advance Directive Discussion [facility] Start: 06-08-2022 Depression Assessment Depression Ass essment [facility] Start: 02-06-2022 Influenza vaccination INFLUENZA (#1) [facility] Start: 08-16-2021 COVID-19 VACCINE (4 - Booster for Moderna series) COVID-19 VACCINE (4 - Booster for Moderna series) [facility] Start: 06-08-2021 ADVANCE DIRECTIVE DISCUSSION ADVANCE DIRECTIVE DISCUSSION [facility] Start: 06-08-2021 DEPRESSION ASSESSMENT DEPRESSION ASS ESSMENT [facility] Start: 09-22-2017 DIABETES SCREEN DIABETES SCREEN [facility] Start: 09-22-2017 Diabetes Screening Diabetes Screenin g [facility] Start: 11-22-2011 BONE DENSITY BONE DENSITY [facility] Start: 11-22-2011 Bone Density Screening Bone Density Screening [facility] Start: 11-22-2011 Pneumococcal Vaccine : 65+ (1 - PCV) Pneumococcal Vaccine: 65+ (1 - PCV) [facility] Start: 11-22-2011 PNEUMOCOCCAL: 65+ (1 - PCV) PNEUMOCOCCAL: 65+ (1 - PCV) [facility] Start: 01-27-2011 LIPID SCREEN LIPID SCREEN [facility] Start: 2006 RSV Vaccine (1 - 1-d ose 60+ series) RSV Vaccine (1 - 1-dose 60+ series) [facility] Start: 1996 SHINGRIX VACCINE (1 of 2) SHINGRIX V ACCINE (1 of 2) [facility] Start: 11-22-1991 COLOGUARD (FIT-DNA) COLOGUARD (FIT-D NA) [facility] Start: 11-22-1991 Colonoscopy COLONOSCOPY [facility] Start: 11-22-1991 COLORECTAL CANCER SCREENING COLORECTAL CANCER SCREENING [facility] Start: 11-22-[address] COLONOGRAPHY [facility] Start: 11-22-1991 FECAL OCCULT BLOOD FECAL OCCULT BLOO D [facility] Start: 11-22-1991 SIGMOIDOSCOPY SIGMOIDOSCOPY [facility] Start: 1965 Urine microalbumin profile [facility] Start: 1964 HEPATITIS C SCREENING HEPATITIS C CA CONCEPCIÓN [facility] Payers Date Payer Category Payer Self-pay [id number] 2022 Private Health Insurance [id number] 2017 Private Health Insurance [id number] 2017 Private Health Insurance [id number] 2012 Medicare MEDICARE MEDICAR E A AND B [id number] 2012-Present [phone] [place] [address] Medicare [id number] 2012 Medicare [id number] Private Health Insurance [facility] [id number] Unknown [id number] Social History Date Type Detail Facility Start: 08-27-2020 Tobacco smoking stat [facility] Unknown if ever smoked Start: 1945 Sex Assigned At Female [facility] Start: 03-06-2022 [facility] Start: 11-06-1976 End: 11-06-1984 History of tobacco use Current smoker [facility] Start: 11-06-1976 End: 11-06-1984 History of tobacco use Cigarette Smoker [facility] Start: 03-06-2022 Tobacco use and exposure Smokeless tobacco non-user [facility] Start: 03-06-2022 Alcohol intake Current non-dr program director/air personality of alcohol (finding) [facility] Start: 1945 Sex Assigned At Not on file [facility] Start: 02-23-2022 End: 03-26-2022 Exposure to SARS-CoV-2 (event) Not sure [facility] Start: 03-06-2022 End: 06-22-2022 History of Social function [facility] Start: 03-06-2022 End: 06-22-2022 Tobacco use panel [facility] Retired 07/07/2019 P HQ Score 0 [facility] Medical Equipment Procedure Code Equipment Code Equipment Origin al Text Equipment Identifier Dates Lens Acrysof Iq Toric Stableforce 6mm 0 D +18.5 Diopter +1.5 Cylinder - [id number] Start: 07-21-2018 Lens Acrysof Iq Toric Stableforce 6mm 0 D +18.5 Diopter +1.5 Cylinder - [id number] Start: 08-04-2018 Clinical Notes 08-04-2018 to 05-18-2024 Letter - Coordinator, Mammography - 04/22/2023 1:34 PM Vishnu Gurrola RT(R) - 04/21/2023 10:00 AM RT Javi(R) - 03/26/2022 2:00 PM Ana Cristina Rajput OD - 03/06/2022 3:03 PM EDT Note Date & Type Note Facility 05-18-2024 Note HNO ID: [id number] Author: VISHNU GOMEZ RT(Miguel) Service: Radiology Author Type: Technologist Type: Progress Notes Filed: 05/18/2024 14:52 Note Text: Radiology Service Progress Note PATIENT NAME: Sloane Montano DATE OF SERVICE: May 18, 2024 TIME: 2:52 PM PATIENT IDENTITY VERIFICATION COMPLETED USING TWO (2) IDENTIFIERS: Name and Date of confirmed by patient verbally. FALL SCREENING: Has the patient had 2 falls in the last year or 1 fall with injury or currently using an Ambulatory Assistive Device (Walker, Cane, Wheelchair, Crutches, etc.)? No PATIENT GENDER DATA: Female. status: : No status: N/A PATIENT RELEVANT IMPLANT DATA REVIEWED: Not Applicable PATIENT PRESENTS WITH AN IMPLANTABLE OR ATTACHED PAYROLL ASSOCIATE: No RADIOLOGY DEPARTMENT: Bone Density PERIPHERAL IV DATA: Not applicable SIGNED BY: RT Veronica(R) May 18, 2024 2:52 PM [facility] 04-22-2023 Miscellaneous Notes [address] [address] April 22, 2023 PID: [id number] Sloane Montano [address] [place] [address] Dear Semaj Arzolashilpaherminio, We are pleased to inform you that the results of your recent breast imaging exam on 04/21/2023 are normal. Early detection of cancer is very important. We also understand recommendations regarding breast cancer screening are controversial. Please discuss with your primary care provider which strategy is best for you and whether a mammogram is right for you. Your imaging studies and report will be kept on file at [facility] as part of your permanent medical record and are available for your continuing care. Thank you for allowing us to help in meeting your health care needs. Sincerely, Dr. Ferrell Interpreting Radiologist [facility] (Normal over 40) documented in this encounter [facility] 04-21-2023 History of Presen t illness Narrative Radiology Service Progress Note PATIENT NAME: Sloane Montano DATE OF SERVICE: April 21, 2023 TIME: 10:01 AM PATIENT IDENTITY VERIFICATION COMPLETED USING TWO (2) IDENTIFIERS: Name and Date of confirmed by patient verbally. FALL SCREENING: Has the patient had 2 falls in the last year or 1 fall with injury or currently using an Ambulatory Assistive Device (Walker, Cane, Wheelchair, Crutches, etc.)? No PATIENT GENDER DATA: Female. status: : No status: N/A PATIENT RELEVANT IMPLANT DATA REVIEWED: Not Applicable RADIOLOGY DEPARTMENT: Mammography PERIPHERAL IV DATA: Not applicable SIGNED BY: RT Veronica(R) April 21, 2023 10:01 AM documented in this encounter [facility] 03-26-2022 History of Presen t illness Narrative Radiology Service Progress Note PATIENT NAME: Sloane Montano DATE OF SERVICE: March 26, 2022 TIME: 2:23 PM PATIENT IDENTITY VERIFICATION COMPLETED USING TWO (2) IDENTIFIERS: Name and Date of confirmed by patient verbally. FALL SCREENING: Has the patient had 2 falls in the last year or 1 fall with injury or currently using an Ambulatory Assistive Device (Walker, Cane, Wheelchair, Crutches, etc.)? No PATIENT GENDER DATA: Female. status: : No status: N/A PATIENT RELEVANT IMPLANT DATA REVIEWED: Not Applicable RADIOLOGY DEPARTMENT: Mammography PERIPHERAL IV DATA: Not applicable SIGNED BY: RT Veronica(Miguel) March 26, 2022 2:23 PM documented in this encounter [facility] 03-06-2022 Note HNO ID: [id number] Author: Rahel Rajput OD Service: ? Author Type: CEMENT AND CONCRETE PLANT WORKER Type: Progress Notes Filed: 03/06/2022 3:05 PM Note Text: Assessment and Plan: 1. Posterior vitreous detachment of both eyes -Stable Posterior vitreous detachment both eyes. -Please call the office immediately if you notice flashes of light, a sudden increase in floaters, or a sudden change in vision. 2. Dry eye syndrome of both eyes -Systane Complete Artificial Tears, 1 drop, three times a day, both eyes. 3. Pseudophakia of both eyes -Intraocular lens implant in good position both eyes. 4. Refractive error -Glasses Rx given today. Rahel Rajput OD I have reviewed, confirmed, and edited as necessary the relevant ophthalmic history, review of systems, allergies, patient history, and ophthalmological examination findings as obtained by the ophthalmic technical staff. I have seen and examined Sloane Montano. I have discussed the examination findings, diagnosis, and treatment options with Sloane Montano and/or her family. I have also reviewed and agree with the assessment and plan as stated above and agree with all its relevant components. I gave the patient the opportunity to ask questions about the examination findings, diagnosis, and treatment options. [facility] 03-06-2022 History of Presen t illness Narrative Assessment and Plan: 1. Posterior vitreous detachment of both eyes -Stable Posterior vitreous detachment both eyes. -Please call the office immediately if you notice flashes of light, a sudden increase in floaters, or a sudden change in vision. 2. Dry eye syndrome of both eyes -Systane Complete Artificial Tears, 1 drop, three times a day, both eyes. 3. Pseudophakia of both eyes -Intraocular lens implant in good position both eyes. 4. Refractive error -Glasses Rx given today. Rahel Rajput, BABS I have reviewed, confirmed, and edited as necessary the relevant ophthalmic history, review of systems, allergies, patient history, and ophthalmological examination findings as obtained by the ophthalmic technical staff. I have seen and examined Sloane Montano. I have discussed the examination findings, diagnosis, and treatment options with Sloane Montano and/or her family. I have also reviewed and agree with the assessment and plan as stated above and agree with all its relevant components. I gave the patient the opportunity to ask questions about the examination findings, diagnosis, and treatment options. documented in this encounter [facility] 03-06-2022 Instructions Rahel Rajput OD - 03/06/2022 3:01 PM EDT Please call the office immediately if you notice flashes of light, a sudden increase in floaters, or a sudden change in vision. Systane Complete Artificial Tears, 1 drop, three times a day, both eyes. Please call the office with decreased vision or increased eye pain. documented in this encounter [facility] 08-04-2018 History of Past i llness Narrative Problem Noted Date Resolved Date Combined form of age-related cataract, right eye 08/04/2018 08/04/2018 Combined forms of age-related cataract of left e ye 07/06/2018 07/21/2018 Overview: Added automatically from request for surgery [id number] Combined form of age-related cataract, left eye 07/06/2018 07/21/2018 Overview: Added automatically from request for surgery [id number] Combined forms of age-related cataract of right eye 07/05/2018 08/05/2018 Regular astigmatism of left eye 07/05/2018 07/21/2018 Regular astigmatism of right eye 07/05/2018 08/04/2018 documented as of this encounter (statuses as of 03/06/2022) [facility] History of Past illness Narrative* Problem Noted Date Resolved Date Combined form of age-related cataract, right eye 08/04/2018 08/04/2018 Combined forms of age-related cataract of left e ye 07/06/2018 07/21/2018 Overview: Added automatically from request for surgery [id number] Combined form of age-related cataract, left eye 07/06/2018 07/21/2018 Overview: Added automatically from request for surgery [id number] Combined forms of age-related cataract of right eye 07/05/2018 08/05/2018 Regular astigmatism of left eye 07/05/2018 07/21/2018 Regular astigmatism of right eye 07/05/2018 08/04/2018 documented as of this encounter (statuses as of 03/27/2022) [facility] History of Past illness Narrative* Problem Noted Date Diagnosed Date Resolved Date Combined form of age-related cataract, right eye 08/04/2018 08/04/2018 Combined forms of age-relate d cataract of left eye 07/06/2018 07/21/2018 Overview: Added automatically from request for surgery [id number] Combined form of age-related cataract, left eye 07/06/2018 07/21/2018 Overview: Added automatically from request for surgery [id number] Combined forms of age-relate d cataract of right eye 07/05/2018 08/05/2018 Regular astigmatism of left eye 07/05/2018 07/21/2018 Regular astigmatism of right eye 07/05/2018 08/04/2018 documented as of this encounter (statuses as of 04/22/2023) [facility] History of Past illness Narrative* Problem Noted Date Diagnosed Date Resolved Date Combined form of age-related cataract, right eye 08/04/2018 08/04/2018 Combined forms of age-relate d cataract of left eye 07/06/2018 07/21/2018 Overview: Added automatically from request for surgery [id number] Combined form of age-related cataract, left eye 07/06/2018 07/21/2018 Overview: Added automatically from request for surgery [id number] Combined forms of age-relate d cataract of right eye 07/05/2018 08/05/2018 Regular astigmatism of left eye 07/05/2018 07/21/2018 Regular astigmatism of right eye 07/05/2018 08/04/2018 documented as of this encounter (statuses as of 04/24/2023) [facility] Diagnosis Onset Date Resolution Status Maxillary sinusitis, acute a cute Right acute otitis media acu te Cystitis acute Hematuria due to acute cystitis acute Right acute otitis media acu te Work Phone: Evaluation note* Diagnosis Posterior vitreous detachment of both eyes- Primary Vitreous degeneration Dry eye syndrome of both eyes Pseudophakia of both eyes Lens replaced by other means Refractive error Unspecified disorder of refraction and accommodation [facility] Diagnosis Onset Date Resolution Status Maxillary sinusitis, acute a cute Right acute otitis media acu te Cystitis acute Hematuria due to acute cystitis acute Right acute otitis media acu te Cystitis acute Dysuria acute Work Phone: Evaluation note* Diagnosis Onset Date Resolution Status Diverticulitis large intestine acute LLQ abdominal pain acute Work Phone: Summary Purpose Family History No Family History Records Found Relationship Condition Age at Onset Recorded Date/T otilia Not Specified Rheumatoid arthritis Unknown Malignant neoplasm of pancreas Unknown Diabetes mellitus Unknown Lupus Unknown Seizure Unknown Malignant neoplasm Unknown Hypertension Unknown Irritable bowel syndrome Unknown mother Malignant neoplasm of lung Unknown father Cardiac disease Unknown Advance Directives No Advanced Directives Records FoundNo Advanced Directives Records FoundNo Advanced Directives Records FoundNo Advanced Directives Records Found Chief Complaint and Reason for Visit Chief Complaint Sinus infection Urinary tract infection/Bladder Reason for Visit Maxillary sinusitis, acute Right acute otitis media Cystitis Hematuria due to acute cystitis Right acute otitis media Chief Complaint Sinus infection Urinary tract infection/Bladder Urinary tract infection Reason for Visit Maxillary sinusitis, acute Right acute otitis media Cystitis Hematuria due to acute cystitis Right acute otitis media Cystitis Dysuria Chief Complaint DIVERTICULTITS Reason for Visit Diverticulitis large intestine LLQ abdominal pain Medications Administered Section Active Administered Medications - up to 3 most recent administrations Medication Order MAR Action Action Date Dose Rate Site fluorescein-benoxinate 0.25-0.4 % 1 Drop (FLURESS) 1 Drop, BOTH EYES, DIRECTED, Starting on [facility] 03/06/22 at 1500, Until Thu03/07/22 at 0259, Administer for applanation tonometry. In the event of a Fluress shortage, administer [place]-Fluor 1 drop into both eyes as directed for applanation tonometry, [facility] MED ORDERS Given 03/06/2022 3:00 PM EDT 1 Drop PHENYLephrine 2.5 % 1 Drop (AK-DILATE, CHRISTINA-SYNEPHRINE) 1 Drop, BOTH EYES, DIRECTED, Starting on [facility]ia 03/06/22 at 1500, Until Thu03/07/22 at 0259, Administer for dilation PROTECT FROM LIGHT, [facility] MED ORDERS Given 03/06/2022 3:00 PM EDT 1 Drop tropicamide 1 % 1 Drop (MYDRIACYL) 1 Drop, BOTH EYES, DIRECTED, Starting on [facility]ia 03/06/22 at 1500, Until Thu03/07/22 at 0259, Administer for dilation, [facility] MED ORDERS Given 03/06/2022 3:00 PM EDT 1 Drop Additional Source Comments INFORMATION SOURCE (unrecogn ized section and content) DATE CREATED AUTHOR 08/31/2020 [facility] DATE CREATED AUTHOR AUTHOR'S ORGANIZ ATION 03/10/2022 [facility] DATE CREATED AUTHOR AUTHOR'S ORGANIZ ATION 04/05/2024 [facility] DATE CREATED AUTHOR AUTHOR'S ORGANIZ ATION 05/21/2024 [facility] Goals (unrecognized section and content) Goals may be documented in a n alternate sectionGoals may be documented in an alternate sectionGoals may be documented in an alternate section Source Comments (unrecognize d section and content) In the event this informatio n is protected by the Federal Confidentiality of Alcohol and Drug Abuse Patient Records regulations: The Federal rules restrict any use of the information to criminally investigate or prosecute any alcohol or drug abuse patient.[facility] the event this information is protected by the Federal Confidentiality of Alcohol and Drug Abuse Patient Records regulations: The Federal rules restrict any use of the information to criminally investigate or prosecute any alcohol or drug abuse patient.[facility] the event this information is protected by the Federal Confidentiality of Alcohol and Drug Abuse Patient Records regulations: The Federal rules restrict any use of the information to criminally investigate or prosecute any alcohol or drug abuse patient.[facility] the event this information is protected by the Federal Confidentiality of Alcohol and Drug Abuse Patient Records regulations: The Federal rules restrict any use of the information to criminally investigate or prosecute any alcohol or drug abuse patient.[facility] Reason for Visit (unrecogniz ed section and content) Reason Comments Floaters Both Eyes Flashes Both Eyes Care Teams (unrecognized sec tion and content) Spanish Teacher Relationship Specialty Start Date End Date Tru Avila, NURSE RESEARCHER.INTERNAL GRINDER [address] [place] [address] PCP - General Family Medicine 12/19/15 Spanish Teacher Relationship Specialty Start Date End Date Tru Avila, NURSE RESEARCHER.INTERNAL GRINDER PCP - General Family Medicine 12/19/15 Team Status: Active Member Role Status Dates Tru Avila JOB PRINTER, JOB PRINTER-C Family Provider Active Tru Avila JOB PRINTER, JOB PRINTER-C Primary Care Provider Active Team Status: Inactive Member Role Status Dates Tru Avila JOB PRINTER, JOB PRINTER-C Primary Care Pr ovider, Attending Provider, Referring Provider Active Team Status: Inactive Member Role Status Dates Tru Avila JOB PRINTER, JOB PRINTER-C Primary Care Provider, Attend ing Provider Active Spanish Teacher Relationship Specialty Start Date End Date Tru Avila, NURSE RESEARCHER.INTERNAL GRINDER [address] [place] [address] PCP - General Family Medicine 12/19/15 Spanish Teacher Relationship Specialty Start Date End Date Tru Avila, NURSE RESEARCHER.INTERNAL GRINDER [address] [place] [address] PCP - General Family Medicine 12/19/15 FOR RECORDS PERTAINING TO PATIENTS WHO ARE OR HAVE BEEN ENROLLED IN A CHEMICAL DEPENDENCY/SUBSTANCEABUSE PROGRAM, SOME INFORMATION MAY BE OMITTED. This clinical summary was aggregated from multiple sources. Caution should be exercised in using it in the provision of clinical care. This summary normalizes information from multiple sources, and as a consequence, information in this document may materially change the coding, format and clinical context of patient data. In addition, data may be omitted in some cases. CLINICAL DECISIONS SHOULD BE BASED ON THE PRIMARY CLINICAL RECORDS. [facility]. provides no warranty or guarantee of the accuracy or completeness of information in this document.
--- OUTSIDE RECORDS SUMMARY | 2025-03-01 21:34 | XMS RPT_ITS | CCD ---
Author Organization [facility] Inform ion Partnership [facility] Care Team Providers Care Funeral Arrangement Director Name Role Phone Benny CAR SEAT COVERER.Tru KASPER Primary Care Provide r TRU AVILA Primary Care Unavailable RAHEL RAJPUT Attending Unavailable Benny CAR SEAT COVERER.Tru KASPER Primary Care Provide r Benny CAR SEAT COVERER.Tru KASPER Primary Care Provide r Benny PIECE JOBBER, Tru Referring Unavailable Benny PIECE JOBBER, Tru Attending Unavailable Benny PIECE JOBBERTru Primary Care Unavailable TRU AIVLA Primary Care Unavailable EVI HALL Attending Unavailable SAMIR AVILAA Yoni Primary Care Unavailable Allergies Allergy Classification Reported Allergen(s) Allergy Type Date of Onset Reaction(s) Facility (3 sources) Sulfamethoxazole Drug Allergy 06-03-20 18 [facility] (10 sources) Sulfonamides (Antibiotic); Translations: [SULFA (SULFONAMIDE ANTIBIOTICS)] Allergy to substance 05-06-20 05 [facility] (3 sources) Trimethoprim Drug Allergy 06-03-20 18 [facility] (1 source) Flu Shot Propensity to adverse reactions 03-01-20 19 Redness, swelling of arms. [facility] Work Phone: (6 sources) Ketorolac; Translations: [KETOROLAC] Drug Allergy 07-26-19 19 Other: See Comments [facility] Work Phone: (2 sources) Influenza Vaccines Propensity to adverse reactions 03-10-20 22 Other [facility] (1 source) Sulfamethoxazole Drug Allergy 06-03-20 18 [facility] Repository (1 source) Trimethoprim Drug Allergy 06-03-20 18 [facility] Repository (1 source) Influenza Virus Vaccines Drug allergy (disorder) 03-10-20 [facility] Repository Medications Current Medications Medication Drug Class(es) [...] * Physician Interpretation * * * * [place] [address] #[id number] - CARSON SCREENING W CRYSTAL HISTORY: Patient [...] Xiao Velazco M.D. Electronically signed on: 05/19/2024 Inspection Machine Tender: NICHELLE Transcribe Date/Time: May 18 2024 2:55P Dictated by : XIAO VELAZCO MD This examination was interpreted and the report reviewed and electronically signed by: XIAO VELAZCO MD on May 19 2024 11:34AM EST [id number] Normal [facility] CBC W Auto Differential pane l (Bld)on 03-17-2024 Basophils (Bld) [#/Vol] 0.04 10*3/uL Normal <0.11 [facility] Comment on above: Order Comment: Speci men Type: BLOOD SPECIMEN Ordering Facility: [facility] Address: [address] [place] [address] Performed By: #### 5 7021-8 #### [facility] CLIA [id number] [address] [place] [address] [place] Basophils/100 WBC (Bld) 0.7 % Normal [facility] Comment on above: Order Comment: Speci men Type: BLOOD SPECIMEN Ordering Facility: [facility] Address: [address] [place] [address] Performed By: #### 5 7021-8 #### [facility] CLIA [id number] [address] [place] [address] [facility] [place] Differential cell count method Nom (Bld) Auto Normal [facility] Comment on above: Order Comment: Speci men Type: BLOOD SPECIMEN Ordering Facility: [facility] Address: [address] [place] [address] Performed By: #### 5 7021-8 #### [facility] CLIA [id number] [address] [place] [address] [place] Eosinophils (Bld) [#/Vol] 0.06 10*3/uL Normal <0.46 [facility] Comment on above: Order Comment: Speci men Type: BLOOD SPECIMEN Ordering Facility: [facility] Address: [address] [place] [address] Performed By: #### 5 7021-8 #### [facility] CLIA [id number] [address] [place] [id number] [place] Eosinophils/100 WBC (Bld) 1.0 % Normal [facility] Comment on above: Order Comment: Speci men Type: BLOOD SPECIMEN Ordering Facility: [facility] Address: [address] [place] [address] Performed By: #### 5 7021-8 #### [facility] CLIA [id number] [address] [place] [address] [place] Erythrocyte distribution width (RBC) [Ratio] 12.9 % Normal 11.5-15.0 [facility] Comment on above: Order Comment: Speci men Type: BLOOD SPECIMEN Ordering Facility: [facility] Address: [address] [place] [address] Performed By: #### 5 7021-8 #### [facility] CLIA [id number] [address] [place] [address] [place] Hematocrit (Bld) [Volume fraction] 36.7 % Normal 36.0-46.0 [facility] Comment on above: Order Comment: Speci men Type: BLOOD SPECIMEN Ordering Facility: [facility] Address: [address] [place] [address] Performed By: #### 5 7021-8 #### [facility] CLIA [id number] [address] [place] [address] [place] Hemoglobin (Bld) [Mass/Vol] 12.2 g/dL Normal 11.5-15.5 [facility] Comment on above: Order Comment: Speci men Type: BLOOD SPECIMEN Ordering Facility: [facility] Address: [address] [place] [address] Performed By: #### 5 7021-8 #### [facility] CLIA [id number] [address] [place] [address] [place] Immature granulocytes (Bld) [#/Vol] 10*3/uL Normal <0.10 [facility] Comment on above: Order Comment: Speci men Type: BLOOD SPECIMEN Ordering Facility: [facility] Address: [address] [place] [address] Performed By: #### 5 7021-8 #### [facility] CLIA [id number] [address] [place] [address] [place] Immature granulocytes/100 WBC (Bld) 0.0 % Normal [facility] Comment on above: Order Comment: Speci men Type: BLOOD SPECIMEN Ordering Facility: [facility] Address: [address] [place] [address] Performed By: #### 5 7021-8 #### [facility] CLIA [id number] [address] [place] [address] [place] Lymphocytes (Bld) [#/Vol] 1.81 10*3/uL Normal 1.00-4.00 [facility] Comment on above: Order Comment: Speci men Type: BLOOD SPECIMEN Ordering Facility: [facility] Address: [address] [place] [address] Performed By: #### 5 7021-8 #### [facility] CLIA [id number] [address] [place] [address] [place] [facility] Lymphocytes/100 WBC (Bld) 31.4 % Normal [facility] Comment on above: Order Comment: Speci men Type: BLOOD SPECIMEN Ordering Facility: [facility] Address: [address] [place] [address] Performed By: #### 5 7021-8 #### [facility] CLIA [id number] [address] [place], [place] [address] [place] [address] MCH (RBC) [Entitic mass] 29.4 pg Normal 26.0-34.0 [facility] Comment on above: Order Comment: Speci men Type: BLOOD SPECIMEN Ordering Facility: [facility] Address: [address] [place] [address] Performed By: #### 5 7021-8 #### [facility] CLIA [id number] [address] STATES OF [facility] MCHC (RBC) [Mass/Vol] 33.2 g/dL Normal 30.5-36.0 [facility] Comment on above: Order Comment: Speci men Type: BLOOD SPECIMEN Ordering Facility: [facility] Address: [address] [place] [address] Performed By: #### 5 7021-8 #### [facility] CLIA [id number] [address] [place] MCV (RBC) [Entitic vol] 88.4 fL Normal 80.0-100.0 [facility] Comment on above: Order Comment: Speci men Type: BLOOD SPECIMEN Ordering Facility: [facility] Address: [address] [place] [address] Performed By: #### 5 7021-8 #### [facility] CLIA [id number] [address] [place] [address] [facility] [place] Monocytes (Bld) [#/Vol] 0.61 10*3/uL Normal <0.87 [facility] Comment on above: Order Comment: Speci men Type: BLOOD SPECIMEN Ordering Facility: [facility] Address: [address] [place] [address] Performed By: #### 5 7021-8 #### [facility] CLIA [id number] [address] [place] [address] [place] Monocytes/100 WBC (Bld) 10.6 % Normal [facility] Comment on above: Order Comment: Speci men Type: BLOOD SPECIMEN Ordering Facility: [facility] Address: [address] [place] [address] Performed By: #### 5 7021-8 #### [facility] CLIA [id number] [address] [place] [address] [place] Neutrophils (Bld) [#/Vol] 3.24 10*3/uL Normal 1.45-7.50 [facility] Comment on above: Order Comment: Speci men Type: BLOOD SPECIMEN Ordering Facility: [facility] Address: [address] [place] [address] Performed By: #### 5 7021-8 #### [facility] CLIA [id number] [address] [place] [address] [place] Neutrophils/100 WBC (Bld) 56.3 % Normal [facility] Comment on above: Order Comment: Speci men Type: BLOOD SPECIMEN Ordering Facility: [facility] Address: [address] [place] [address] Performed By: #### 5 7021-8 #### [facility] CLIA [id number] [address] [place] [address] [place] Nucleated RBC (Bld) [#/Vol] Normal [facility] Comment on above: Order Comment: Speci men Type: BLOOD SPECIMEN Ordering Facility: [facility] Address: [address] [place] [address] Performed By: #### 5 7021-8 #### [facility] CLIA [id number] [address] [place] [address] [place] Nucleated RBC/100 WBC (Bld) [Ratio] Normal [facility] Comment on above: Order Comment: Speci men Type: BLOOD SPECIMEN Ordering Facility: [facility] Address: [address] [place] [address] Performed By: #### 5 7021-8 #### [facility] CLIA [id number] [address] [place] [address] [place] Platelet mean volume (Bld) [Entitic vol] 9.4 fL Normal 9.0-12.7 [facility] Comment on above: Order Comment: Speci men Type: BLOOD SPECIMEN Ordering Facility: [facility] Address: [address] [place] [address] Performed By: #### 5 7021-8 #### [facility] CLIA [id number] [address] [place] [address] [place] Platelets (Bld) [#/Vol] 289 10*3/uL Normal 150-400 [facility] Comment on above: Order Comment: Speci men Type: BLOOD SPECIMEN Ordering Facility: [facility] Address: [address] [place] [address] Performed By: #### 5 7021-8 #### [facility] CLIA [id number] [address] [place] [address] [place] RBC (Bld) [#/Vol] 4.15 10*6/uL Normal 3.90-5.20 [facility] Comment on above: Order Comment: Speci men Type: BLOOD SPECIMEN Ordering Facility: [facility] Address: [address] [place] [address] Performed By: #### 5 7021-8 #### [facility] CLIA [id number] [address] [place] [address] [place] WBC (Bld) [#/Vol] 5.76 10*3/uL Normal 3.70-11.00 [facility] Comment on above: Order Comment: Speci men Type: BLOOD SPECIMEN Ordering Facility: [facility] Address: [address] [place] [address] Performed By: #### 5 7021-8 #### [facility] CLIA [id number] [address] [place] [address] [place] [address] ABD/PEL W IVCONon 10-[address] ABD/PEL W IVCON * * *Final Report* * * DATE OF EXAM: Mar 17 2024 7:04AM [facility] 0530 - CT ABD/PEL W IVCON / [...] acute diverticulitis. 2. Small fat-containing umbilical hernia [facility]pection Machine T[facility] Transcribe Date/Time: Mar 17 2024 8:04A Dictated by : CHRISTIN GARRIDO MD This examination was interpreted and the report reviewed and electronically signed by: CHRISTIN GARRIDO MD on Mar 17 2024 8:11AM EST [id number] Normal [facility] Comprehensive metabolic 2000 panelon 03-17-2024 Albumin [Mass/Vol] 4.2 g/dL Normal 3.9-4.9 [facility] Comment on above: Order Comment: Speci men Type: BLOOD SPECIMEN Ordering Facility: [facility] Address: [address] [place] [address] Performed By: #### 2 4323-8, 3040-3 #### [facility] CLIA [id number] [address] [place] [address] [place] [facility] ALP [Catalytic activity/Vol] 77 U/L Normal 34-123 [facility] Comment on above: Order Comment: Speci men Type: BLOOD SPECIMEN Ordering Facility: [facility] Address: [address] [place] [address] Performed By: #### 2 4323-8, 3040-3 #### [facility] CLIA [id number] [address] [place] [address] [place] [facility] ALT With P-5'-P [Catalytic activity/Vol] 11 U/L Normal 7-38 [facility] Comment on above: Order Comment: Speci men Type: BLOOD SPECIMEN Ordering Facility: [facility] Address: [address] [place] [address] Performed By: #### 2 4323-8, 3040-3 #### [facility] CLIA [id number] [address] [place] [address] [place] [facility] Anion gap [Moles/Vol] 11 mmol/L Normal 8-15 [facility] Comment on above: Order Comment: Speci men Type: BLOOD SPECIMEN Ordering Facility: [facility] Address: [address] [place] [address] Performed By: #### 2 4323-8, 3040-3 #### [facility] CLIA [id number] [address] [place] [address] [place] AST With P-5'-P [Catalytic activity/Vol] 18 U/L Normal 13-35 [facility] Comment on above: Order Comment: Speci men Type: BLOOD SPECIMEN Ordering Facility: [facility] Address: [address] [place] [address] Performed By: #### 2 4323-8, 3040-3 #### [facility] CLIA [id number] [address] [place] [address] [place] Bilirubin [Mass/Vol] 0.5 mg/dL Normal 0.2-1.3 [facility] Comment on above: Order Comment: Speci men Type: BLOOD SPECIMEN Ordering Facility: [facility] Address: [address] [place] [address] Performed By: #### 2 4323-8, 0-3 #### [facility] CLIA [id number] [address] [place] [address] [place] Calcium [Mass/Vol] 9.2 mg/dL Normal 8.5-10.2 [facility] Comment on above: Order Comment: Speci men Type: BLOOD SPECIMEN Ordering Facility: [facility] Address: [address] [place] [address] Performed By: #### 2 4323-8, 0-3 #### [facility] CLIA [id number] [address] [place] [address] [place] Chloride [Moles/Vol] 104 mmol/L Normal 98-107 [facility] Comment on above: Order Comment: Speci men Type: BLOOD SPECIMEN Ordering Facility: [facility] Address: [address] [place] [address] Performed By: #### 2 4323-8, 0-3 #### [facility] CLIA [id number] [address] [place] [address] [place] CO2 [Moles/Vol] 26 mmol/L Normal 22-30 [facility] Comment on above: Order Comment: Speci men Type: BLOOD SPECIMEN Ordering Facility: [facility] Address: [address] [place] [address] Performed By: #### 2 4323-8, 3040-3 #### [facility] CLIA [id number] [address] [place] [address] [facility] Creatinine [Mass/Vol] 0.84 mg/dL Normal 0.58-0.96 [facility] Comment on above: Order Comment: Sharon negro Type: BLOOD SPECIMEN Ordering Facility: [facility] Address: [address] [place] [address] Performed By: #### 2 4323-8, 3040-3 #### [facility] CLIA [id number] [address] [place] [id number] [facility] Creatinine and Glomerular filtration rate.predicted panel (S/P/Bld) 72 mL/min/1.73m??? Normal >=60 [facility] Comment on above: Order Comment: Sharon negro Type: BLOOD SPECIMEN Ordering Facility: [facility] Address: [address] [place] [address] Result Comment: Estefany mated Glomerular Filtration Rate [...] Performed By: #### 2 4323-8, 0-3 #### [facility] CLIA [id number] [address] [place] [id number] [place] [facility] Glucose [Mass/Vol] 95 mg/dL Normal 74-99 [facility] Comment on above: Order Comment: Sharon negor Type: BLOOD SPECIMEN Ordering Facility: [facility] Address: [address] [place] [address] Result Comment: The [place] [employer] (ADA) provides guidance for cutoff [...] Standards of Medical Care in Diabetes 2016, [place] [employer]. Diabetes Care. 2016.39(Suppl 1). Performed By: #### 2 4323-8, 3040-3 #### [facility] CLIA [id number] [address] [place] [address] [place] Potassium [Moles/Vol] 3.6 mmol/L Low 3.7-5.1 [facility] Comment on above: Order Comment: Speci men Type: BLOOD SPECIMEN Ordering Facility: [facility] Address: [address] [place] [id number] Performed By: #### 2 4323-8, 0-3 #### [facility] CLIA [id number] [address] [place] [address] [place] Protein [Mass/Vol] 6.9 g/dL Normal 6.3-8.0 [facility] Comment on above: Order Comment: Speci men Type: BLOOD SPECIMEN Ordering Facility: [facility] Address: [address] [place] [id number] Performed By: #### 2 4323-8, 0-3 #### [facility] CLIA [id number] [address] [place] [address] [place] Sodium [Moles/Vol] 141 mmol/L Normal 136-144 [facility] Comment on above: Order Comment: Speci men Type: BLOOD SPECIMEN Ordering Facility: [facility] Address: [address] [place] [address] Performed By: #### 2 4323-8, 3040-3 #### [facility] CLIA [id number] [address] [place] [address] [place] Urea nitrogen [Mass/Vol] 11 mg/dL Normal 7-21 [facility] Comment on above: Order Comment: Speci men Type: BLOOD SPECIMEN Ordering Facility: [facility] Address: [address] [place] [address] Performed By: #### 2 4323-8, 3040-3 #### [facility] CLIA [id number] [address] [place] [address] OF [facility] ED NOTEon 03-17-2024 ED NOTE HNO ID: [id number] Author: NGOZI SHARPE RN Service: ? Author [...] March 18, 2024 TIME: 11:37 AM Normal [facility] ED NOTE HNO ID: [id number] Author: ART KAMINSKI RN Service: Emergency Medicine Author Type: Registered Nurse Type: ED Notes Filed: 03/17/2024 08:25 Note Text: Bladder scan 198, pt sts she has a bladder sling and that is not uncommon for her Normal [facility] ED NOTE HNO ID: [id number] Author: HENRIK MUSTAFA RN Service: Emergency Medicine [...] this time. Has had intermittent fever. Normal [facility] ED PROV NOTEon 03-17-2024 ED PROV NOTE HNO ID: [id number] Author: EVI HALL MD Service: ? Author [...] AM PAGER/CONTACT #: EVI HALL 03/17/24927 Normal [facility] ED PROV NOTE HNO ID: [id number] Author: LILA DEAN DO Service: Emergency Medicine [...] CVA tenderne (more content not included)... Normal [facility] Lactate (Bld) [Moles/Vol]on 03-17-2024 Lactate [Moles/Vol] 1.6 mmol/L Normal 0.5-2.2 [facility] Comment on above: Order Comment: Speci men Type: BLOOD SPECIMEN Ordering Facility: [facility] Address: [address] [place] [address] Performed By: #### 3 2693-4 #### [facility] CLIA [id number] [address] [place] [address] [place] Lipase SerPl-cCncon 03-17-20 24 Lipase [Catalytic activity/Vol] 38 U/L Normal 16-61 [facility] Comment on above: Order Comment: Speci men Type: BLOOD SPECIMEN Ordering Facility: [facility] Address: [address] [place] [address] Performed By: #### 2 4323-8, 3040-3 #### [facility] CLIA [id number] [address] [place] [address] [facility] Urinalysis complete panel (U )on 03-17-2024 Bilirubin Ql (U) Negative Normal Negative [facility] Comment on above: Order Comment: Speci men Type: URINE SPECIMEN Ordering Facility: [facility] Address: [address] [place] [address] Performed By: #### 2 4356-8 #### [facility] CLIA [id number] [address] [place] [address] [facility] [place] Clarity (Unsp spec) Slightly Cloudy Abnormal Clear [facility] Comment on above: Order Comment: Speci men Type: URINE SPECIMEN Ordering Facility: [facility] Address: [address] [place] [address] Performed By: #### 2 4356-8 #### [facility] CLIA [id number] [address] [place] [address] [facility] Color (U) Yellow Normal Yellow [facility] Comment on above: Order Comment: Speci men Type: URINE SPECIMEN Ordering Facility: [facility] Address: [address] [place] [address] Performed By: #### 2 4356-8 #### [facility] CLIA [id number] [address] [place] [address] [facility] [place] Epithelial cells LM.HPF (Urine sed) [#/Area] Few Normal [facility] Comment on above: Order Comment: Speci men Type: URINE SPECIMEN Ordering Facility: [facility] Address: [address] [place] [address] Result Comment: Few Performed By: #### 2 4356-8 #### [facility] CLIA [id number] [address] [place] [address] [facility] Glucose Test strip (U) [Mass/Vol] Negative Normal Negative [facility] Comment on above: Order Comment: Speci men Type: URINE SPECIMEN Ordering Facility: [facility] Address: [address] [place], [place] [address] Performed By: #### 2 4356-8 #### [facility] CLIA [id number] [address] [place] [address] [facility] [place] Hemoglobin Ql (U) Negative Normal Negative [facility] Comment on above: Order Comment: Speci men Type: URINE SPECIMEN Ordering Facility: [facility] Address: [address] [place] [address] Performed By: #### 2 4356-8 #### [facility] CLIA [id number] [address] [place] [address] [place] Ketones Ql (U) Negative Normal Negative [facility] Comment on above: Order Comment: Speci men Type: URINE SPECIMEN Ordering Facility: [facility] Address: [address] [place] [address] Performed By: #### 2 4356-8 #### [facility] CLIA [id number] [address] [place] [address] [place] Leukocyte esterase Test strip Ql (U) Negative Normal Negative [facility] Comment on above: Order Comment: Speci men Type: URINE SPECIMEN Ordering Facility: [facility] Address: [address] [place] [address] Performed By: #### 2 4356-8 #### [facility] CLIA [id number] [address] [place] [address] [place] Nitrite Ql (U) Negative Normal Negative [facility] Comment on above: Order Comment: Speci men Type: URINE SPECIMEN Ordering Facility: [facility] Address: [address] [place] [address] Performed By: #### 2 4356-8 #### [facility] CLIA [id number] [address] [place] [address] [facility] [place] pH (U) 7.0 [pH] Normal 5.0-8.0 [facility] Comment on above: Order Comment: Speci men Type: URINE SPECIMEN Ordering Facility: [facility] Address: [address] [place] [address] Performed By: #### 2 4356-8 #### [facility] CLIA [id number] [address] Protein (U) [Mass/Vol] Negative Normal Negative [facility] [facility] Comment on above: Order Comment: Speci men Type: URINE SPECIMEN Ordering Facility: [facility] Address: [address] [place] [address] Performed By: #### 2 4356-8 #### [facility] CLIA [id number] [address] RBC LM.HPF (Urine sed) [#/Area] 0-3 /HPF Normal 0-3 /HPF [facility] Comment on above: Order Comment: Speci men Type: URINE SPECIMEN Ordering Facility: [facility] Address: [address] [place] [address] Performed By: #### 2 4356-8 #### [facility] CLIA [id number] [address] [place] [address] Specific gravity (U) [Rel density] 1.010 Normal 1.005-1.030 [facility] Comment on above: Order Comment: Speci men Type: URINE SPECIMEN Ordering Facility: [facility] Address: [address] [place] [address] Performed By: #### 2 4356-8 #### [facility] CLIA [id number] [address] Urobilinogen Ql (U) 0.2 EU/dL Normal 0.2-1.0 EU/dL [facility] Comment on above: Order Comment: Speci men Type: URINE SPECIMEN Ordering Facility: [facility] Address: [address] [place] [address] Performed By: #### 2 4356-8 #### [facility] CLIA [id number] [address] [place] WBC LM.HPF (Urine sed) [#/Area] 0-5 /HPF Normal 0-5 /HPF [facility] Comment on above: Order Comment: Speci men Type: URINE SPECIMEN Ordering Facility: [facility] Address: [address], [place] [address] Performed By: #### 2 4356-8 #### [facility] CLIA [id number] [address] [place] [address] [place] Urine Cultureon 03-15-2024 URC Culture exhibits no growth. Normal [facility] Comment on above: Performed By: #### M 100.2200 #### [facility] Laboratory [address] [place], [address] Absolute lymphocyte countOrd ered By: Tru Avila on 01-29-2023 Lymphocytes Auto (Unsp spec) [#/Vol] 2.50 10*3/uL 0.83-4.51 [facility] Basophil percentageOrdered B y: Tru Avila on 01-29-2023 Basophils/100 WBC (Bld) 0.4 % 0-1 [facility] Bilirubin [Mass/Vol] 0.30 mg/dL 0.20-1.00 [facility] Comment on above: For patients on eltr ombopag therapy, use of Dimension [place] TBIL is not recommended. Chloride [Moles/Vol] 109 mmol/L 98-107 [facility] Eosinophils/100 WBC (Bld) 0.9 % 0-5 [facility] Glucose [Mass/Vol] 133 mg/dL 74-106 [facility] Comment on above: Fasting Glucose resu lt greater than or equal to 126 mg/dL suggests DIABETES MELLITUS per A.D.A. criteria. Neutrophils (Bld) [#/Vol] 5.6 10*3/uL 2.0-7.7 [facility] Neutrophils/100 WBC (Bld) 62.4 % 47-70 [facility] Potassium [Moles/Vol] 3.5 mmol/L 3.5-5.1 [facility] Protein [Mass/Vol] 7.3 g/dL 6.4-8.2 [facility] Sodium [Moles/Vol] 143 mmol/L 136-145 [facility] WBC (Bld) [#/Vol] 9.0 10*3/uL 4.4-11.0 [facility] Blood erythrocytes count (nu mber/volume)Ordered By: Tru Avila on 01-29-2023 RBC (Bld) [#/Vol] 4.17 10*6/uL 4.2-5.4 [facility] Blood hemoglobin measurement (mass/volume)Ordered By: Tru Avila on 01-29-2023 Hemoglobin (Bld) [Mass/Vol] 12.0 g/dL 12.0-15.0 [facility] Blood lymphocytes/100 leukoc ytesOrdered By: Tru Avila on 01-29-2023 Lymphocytes/100 WBC (Bld) 27.7 % 19-41 [facility] Blood monocytes/100 leukocyt esOrdered By: Tru Avila on 01-29-2023 Monocytes/100 WBC (Bld) 8.4 % 0-10 [facility] Blood platelet mean volumeOr dered By: Tru Avila on 01-29-2023 Platelet mean volume (Bld) [Entitic vol] 10.3 fL 6.2-12.0 [facility] Determination of erythrocyte mean corpuscular volume (MCV)Ordered By: Tru Avila on 01-29-2023 MCV (RBC) [Entitic vol] 89.0 fL 81-99 [facility] Hematocrit Auto (Bld) [Volum e fraction]Ordered By: Tru Avila on 01-29-2023 Hematocrit (Bld) [Volume fraction] 37.1 % 37-47 [facility] Laboratory - Chemistry and C hemistry - challengeOrdered By: Tru Avila on 01-29-2023 ALP [Catalytic activity/Vol] 87 U/L 45-117 [facility] ALT [Catalytic activity/Vol] 22 U/L 13-56 [facility] CO2 [Moles/Vol] 27.0 mmol/L 21.0-32.0 [facility] Globulin (S) [Mass/Vol] 3.6 g/dL 2.2-4.2 [facility] Urea nitrogen/Creatinine [Mass ratio] 18.0 mg/mg 10-20 [facility] Laboratory - Hematology and Cell countsOrdered By: Tru Avila on 01-29-2023 Erythrocyte distribution width (RBC) [Entitic vol] 43.2 fL 35.1-43.9 [facility] Erythrocyte distribution width (RBC) [Ratio] 13.2 % 11.6-14.6 [facility] Immature granulocytes/100 WBC (Bld) 0.200 % 0.0-0.9 [facility] Comment on above: IG% - Immature Granu locytes (promyelocytes, myelocytes and metamyelocytes) > 1% indicates that a LEFT SHIFT is Present. MCH (RBC) [Entitic mass] 28.8 pg 27.0-32.0 [facility] Nucleated RBC/100 WBC (Bld) [Ratio] 0 % 0-5 [facility] MCHC Auto (RBC) [Mass/Vol]Or dered By: Tru Avila on 01-29-2023 MCHC (RBC) [Mass/Vol] 32.3 g/dL 32-36 [facility] No Panel InformationOrdered By: Tru Avila on 01-29-2023 Estimated GFR (MDRD) Amer 79 mL/min >60 [facility] Comment on above: GFR Calc Estimated GFR (MDRD) Non-Af Amer 66 mL/min >60 [facility] Comment on above: Non- GFR Calc Thyroid Stimulating Hormone (TSH) 2.89 uIU/mL 0.358-3.74 [facility] Platelets bldOrdered By: Samir Avila on 01-29-2023 Platelets (Bld) [#/Vol] 291 10*3/uL 150-450 [facility] Serum or plasma albumin inderjit urement (mass/volume)Ordered By: Tru Avila on 01-29-2023 Albumin [Mass/Vol] 3.7 g/dL 3.2-5.0 [facility] Serum or plasma albumin/glob ulin mass ratioOrdered By: Tru Avila on 01-29-2023 Albumin/Globulin [Mass ratio] 1.0 {ratio} 0.9-2.4 [facility] Serum or plasma calcium inderjit urement (mass/volume)Ordered By: Tru Avila on 01-29-2023 Calcium [Mass/Vol] 8.9 mg/dL 8.5-10.1 [facility] Serum or plasma creatinine m easurement (mass/volume)Ordered By: Tru Avila on 01-29-2023 Creatinine [Mass/Vol] 0.89 mg/dL 0.55-1.02 [facility] Comment on above: The validity of the calculated GFR & GFRAA in patients over 70 years has not been determined. Clinical correlation is essential. Serum or plasma urea nitroge n measurement (mass/volume)Ordered By: Tru Avila on 01-29-2023 Urea nitrogen [Mass/Vol] 16 mg/dL 7-18 [facility] Thin prep Papanicolaou smear with manual screeningOrdered By: Tru Avila on 01-29-2023 Thin prep Papanicolaou smear with manual screening 14 U/L 15-37 [facility] Thin prep Papanicolaou smear with manual screening 7 5-15 [facility] CARSON SCREENINGon 03-26-2022 [facility] Laboratory - Chemistry and C hemistry - challengeon 03-14-2022 Bilirubin Ql (U) Negative [facility] Work Phone: Glucose Ql (U) Negative [facility] Work Phone: Ketones Ql (U) Negative [facility] Work Phone: pH (U) 6.5 [pH] [facility] Work Phone: Specific gravity (U) [Rel density] 1.005 [facility] Work Phone: Urobilinogen (U) [Mass/Vol] 0.5244571 mg/dL [facility] Work Phone: Laboratory - Hematology and Cell countson 03-14-2022 Hemoglobin Ql (U) Negative [facility] Work Phone: Laboratory - Specimen inform ationon 03-14-2022 Clarity (U) Clear [facility] Work Phone: Color (U) Colorless [facility] Work Phone: Laboratory - Urinalysison Nitrite Ql (U) Negative [facility] Work Phone: Protein Ql (U) Negative [facility] Work Phone: No Panel Informationon 03-14 Urine Leukocytes Negatve [facility] Work Phone: Urine Non-Hemolyzed Blood [facility] Work Phone: Laboratory - Chemistry and C hemistry - challengeon 01-14-2022 Bilirubin Ql (U) Negative [facility] Work Phone: Glucose Ql (U) Negative [facility] Work Phone: Ketones Ql (U) Negative [facility] Work Phone: [phone] pH (U) 7.0 [pH] [facility] Work Phone: Specific gravity (U) [Rel density] 1.015 [facility] Work Phone: Urobilinogen (U) [Mass/Vol] 0.6974872 mg/dL [facility] Work Phone: Laboratory - Hematology and Cell countson 01-14-2022 Hemoglobin Ql (U) Hemolyzed [facility] Work Phone: Laboratory - Specimen inform ationon 01-14-2022 Clarity (U) Clear [facility] Work Phone: Color (U) Yellow [facility] Work Phone: Laboratory - Urinalysison Nitrite Ql (U) Negative [facility] Work Phone: Protein Ql (U) Negative [facility] Work Phone: No Panel Informationon 01-14 Urine Leukocytes Positive [facility] Work Phone: Urine Non-Hemolyzed Blood Trace [facility] Work Phone: US ABD AORTAon 08-30-2020 US [...] IMPRESSION: No evidence for abdominal aortic aneurysm. Inspection Machine Tender: PSYCHIATRIC Transcribe Date/Time: Aug 30 2020 8:39A Dictated by : JOLENE MEDINA MD This examination was interpreted and the report reviewed and electronically signed by: JOLENE MEDINA MD on Aug 30 2020 8:40AM EST Normal [facility] Culture, urine Bacteria identified Cx Nom (U) Presumptive E. coli [facility] Work Phone: Bacteria identified Cx Nom (U) Mixed Gram Pos & Gram Neg Org [facility] Work Phone: Vital Signs Date Time Vital Sign Value Performing Clinician Faci lity 01-29-2023 18:01-0400 Body height 165.1 cm [facility] 01-29-2023 18:01-0400 Body mass index (BMI) [Ratio] 30.4 kg/m2 [facility] 01-29-2023 18:01-0400 Body temperature 97.7 [degF] [facility] 01-29-2023 18:01-0400 Body weight 83 kg [facility] 01-29-2023 18:01-0400 Diastolic blood pressure 70 mm[Hg] [facility] 01-29-2023 18:01-0400 Heart rate 83 /min [facility] 01-29-2023 18:01-0400 Respiratory rate 18 /min [facility] 01-29-2023 18:01-0400 SaO2% (BldA) [Mass fraction] 96 % [facility] 01-29-2023 18:01-0400 Systolic blood pressure 138 mm[Hg] [facility] 03-14-2022 16:43-0400 Body height 165.1 cm [facility] Work Phone: 03-14-2022 16:43-0400 Body mass index (BMI) [Ratio] 30.9 kg/m2 [facility] Work Phone: 03-14-2022 16:43-0400 Body temperature 97.6 [degF] [facility] Work Phone: 03-14-2022 16:43-0400 Body weight 84.36 kg [facility] Work Phone: 03-14-2022 16:43-0400 Diastolic blood pressure 90 mm[Hg] [facility] Work Phone: 03-14-2022 16:43-0400 Heart rate 81 /min [facility] Work Phone: 03-14-2022 16:43-0400 Respiratory rate 18 /min [facility] Work Phone: 03-14-2022 16:43-0400 SaO2% (BldA) [Mass fraction] 98 % [facility] Work Phone: 03-14-2022 16:43-0400 Systolic blood pressure 122 mm[Hg] [facility] Work Phone: 01-14-2022 18:06-0400 Body height 165.1 cm [facility] Work Phone: 01-14-2022 18:06-0400 Body mass index (BMI) [Ratio] 30.7 kg/m2 [facility] Work Phone: 01-14-2022 18:06-0400 Body temperature 97.3 [degF] [facility] Work Phone: 01-14-2022 18:06-0400 Body weight 83.91 kg [facility] Work Phone: 01-14-2022 18:06-0400 Diastolic blood pressure 74 mm[Hg] [facility] Work Phone: 01-14-2022 18:06-0400 Heart rate 74 /min [facility] Work Phone: 01-14-2022 18:06-0400 Respiratory rate 18 /min [facility] Work Phone: 01-14-2022 18:06-0400 SaO2% (BldA) [Mass fraction] 96 % [facility] Work Phone: 01-14-2022 18:06-0400 Systolic blood pressure 154 mm[Hg] [facility] Work Phone: 11-26-2021 16:04-0400 Body mass index (BMI) [Ratio] 30.6 kg/m2 [facility] Work Phone: 11-26-2021 16:04-0400 Body temperature 97.5 [degF] [facility] Work Phone: 11-26-2021 16:04-0400 Body weight 83.46 kg [facility] Work Phone: 11-26-2021 16:04-0400 Diastolic blood pressure 60 mm[Hg] [facility] Work Phone: 11-26-2021 16:04-0400 Heart rate 72 /min [facility] Work Phone: 11-26-2021 16:04-0400 Respiratory rate 18 /min [facility] Work Phone: 11-26-2021 16:04-0400 SaO2% (BldA) [Mass fraction] 95 % [facility] Work Phone: 11-26-2021 16:04-0400 Systolic blood pressure 118 mm[Hg] [facility] Work Phone: Encounters Encounter Date Encounter Type Care Provider Facility Start: 05-18-2024 ambulatory TRU AVILA [facility] ity:[facility] Start: 03-17-2024 End: 03-17-2024 Emergency department patient visit TRU AVILA Facility:[facility] Start: 03-14-2024 End: 03-14-2024 ambulatory Tru Avila PIECE JOBBER Facility:[facility] Start: 04-22-2023 Documentation procedure Mammog nimesh Coordinator [facility] Start: 04-22-2023 Letter encounter Mammography Coordinator [facility] NOT LISTED Start: 04-21-2023 End: 04-21-2023 Subsequent hospital visit by physician Mammo/Bone D[facility] Comment on above: Breast cancer screen ing by mammogram [Z12.31] Start: 01-29-2023 End: 01-29-2023 ambulatory [facility] Work Phone: Start: 01-29-2023 End: 01-29-2023 Patient encounter procedure [facility]Laboratory, Specimen Work Phone: Start: 03-26-2022 End: 03-26-2022 Subsequent hospital visit by physician Mammo/Bone D[facility] Comment on above: Encounter for screen ing mammogram for malignant neoplasm of breast [Z12.31] Start: 03-14-2022 End: 03-14-2022 ambulatory [facility] Work Phone: Start: 03-14-2022 End: 03-14-2022 Patient encounter procedure [facility]Laboratory, Specimen Start: 03-06-2022 End: 03-06-2022 ambulatory TRU AVILA Facility:[facility] Start: 03-06-2022 End: 03-06-2022 Patient encounter procedure Rahel Rajput OD Work Phone: Ophthalmology Comment on above: Posterior vitreous d etachment of both eyes (Primary Dx); Dry eye syndrome of both eyes; Pseudophakia of both eyes; Refractive error Start: 01-14-2022 End: 01-14-2022 Patient encounter procedure [facility], Specimen Procedures Date Procedure Procedure Detail Performing Clinician Start: 03-26-2022 Screening mammograph y bi 2-view breast inc cad Tru Avila CAR SEAT COVERER.EMBROIDERY FINISHER Work Phone: Urine culture Plan of Treatment Date Care Activity Detail Author Start: 02-06-2023 Covid-19 Vaccine ( season) Covid-19 Vaccine () [facility] Start: 02-06-2023 Influenza vaccination Influenza Vacc ine (#1) [facility] Start: 06-08-2022 Advance Directive Discussion Advance Directive Discussion [facility] Start: 06-08-2022 Depression Assessment Depression Ass essment [facility] Start: 02-06-2022 Influenza vaccination INFLUENZA (#1) [facility] Start: 08-16-2021 COVID-19 VACCINE (4 - Booster for Moderna series) COVID-19 VACCINE (4 - Booster for Moderna series) [facility] Start: 06-08-2021 ADVANCE DIRECTIVE DISCUSSION ADVANCE DIRECTIVE DISCUSSION [facility] Start: 06-08-2021 DEPRESSION ASSESSMENT DEPRESSION ASS ESSMENT [facility] Start: 09-22-2017 DIABETES SCREEN DIABETES SCREEN [facility] Start: 09-22-2017 Diabetes Screening Diabetes Screenin g [facility] Start: 11-22-2011 BONE DENSITY BONE DENSITY [facility] Start: 11-22-2011 Bone Density Screening Bone Density Screening [facility] Start: 11-22-2011 Pneumococcal Vaccine : 65+ (1 - PCV) Pneumococcal Vaccine: 65+ (1 - PCV) [facility] Start: 11-22-2011 PNEUMOCOCCAL: 65+ (1 - PCV) PNEUMOCOCCAL: 65+ (1 - PCV) [facility] Start: 01-27-2011 LIPID SCREEN LIPID SCREEN [facility] Start: 2006 RSV Vaccine (1 - 1-d ose 60+ series) RSV Vaccine (1 - 1-dose 60+ series) [facility] Start: 1996 SHINGRIX VACCINE (1 of 2) SHINGRIX V ACCINE (1 of 2) [facility] Start: 11-22-1991 COLOGUARD (FIT-DNA) COLOGUARD (FIT-D NA) [facility] Start: 11-22-1991 Colonoscopy COLONOSCOPY [facility] Start: 11-22-1991 COLORECTAL CANCER SCREENING COLORECTAL CANCER SCREENING [facility] Start: 11-22-[address] COLONOGRAPHY [facility] Start: 11-22-1991 FECAL OCCULT BLOOD FECAL OCCULT BLOO D [facility] Start: 11-22-1991 SIGMOIDOSCOPY SIGMOIDOSCOPY [facility] Start: 1965 Urine microalbumin profile [facility] Start: 1964 HEPATITIS C SCREENING HEPATITIS C [place] CONCEPCIÓN [facility] Payers Date Payer Category Payer Self-pay [id number] 2022 Private Health Insurance [id number] 2017 Private Health Insurance [id number] 2017 Private Health Insurance [id number] 2012 Medicare MEDICARE MEDICAR E A AND B [id number] 2012-Present [phone] [place] [address] Medicare [id number] 2012 Medicare [id number] Private Health Insurance [facility] [id number] Unknown [id number] Social History Date Type Detail Facility Start: 08-27-2020 Tobacco smoking stat [facility] Unknown if ever smoked [facility] Start: 1945 Sex Assigned At Female [facility] Start: 03-06-2022 [facility] Start: 11-06-1976 End: 11-06-1984 History of tobacco use Current smoker [facility] Start: 11-06-1976 End: 11-06-1984 History of tobacco use Cigarette Smoker [facility] Start: 03-06-2022 Tobacco use and exposure Smokeless tobacco non-user [facility] Start: 03-06-2022 Alcohol intake Current non-dr [place] [employer] [place] (finding) [facility] Start: 1945 Sex Assigned At Not on file [facility] Start: 02-23-2022 End: 03-26-2022 Exposure to SARS-CoV-2 (event) Not sure [facility] Start: 03-06-2022 End: 06-22-2022 History of Social function [facility] Start: 03-06-2022 End: 06-22-2022 Tobacco use panel [facility] Retired 07/07/2019 P HQ Score 0 [facility] Medical Equipment Procedure Code Equipment Code Equipment Origin al Text Equipment Identifier Dates Lens Acrysof Iq Toric Stableforce 6mm 0 D +18.5 Diopter +1.5 Cylinder - [id number] Start: 07-21-2018 Lens Acrysof Iq Toric Stableforce 6mm 0 D +18.5 Diopter +1.5 Cylinder - [id number] Start: 08-04-2018 Clinical Notes 08-04-2018 to 05-18-2024 Letter - Coordinator, Mammography - 04/22/2023 1:34 PM Vishnu Gurrola RT(R) - 04/21/2023 10:00 AM RT Javi(R) - 03/26/2022 2:00 PM Ana Cristina Rajput OD - 03/06/2022 3:03 PM EDT Note Date & Type Note Facility 05-18-2024 Note HNO ID: [id number] Author: VISHNU GOMEZ RT(Miguel) Service: Radiology Author [...] PATIENT PRESENTS WITH AN IMPLANTABLE OR ATTACHED LYE BOILER: No RADIOLOGY DEPARTMENT: Bone Density PERIPHERAL IV DATA: Not applicable SIGNED BY: RT Veronica(R) May 18, 2024 2:52 PM [facility] 04-22-2023 Miscellaneous Notes [address] [address] April 22, 2023 PID: [id number] Sloane Montano [address] [place] [address] Dear Semaj Arzolashilpaherminio, We are pleased to [...] report will be kept on file at [facility] as part of your permanent medical record and are available for your continuing care. Thank you for allowing us to help in meeting your health care needs. Sincerely, Dr. Ferrell Interpreting Radiologist [facility] (Normal over 40) documented in this encounter [facility] 04-21-2023 History of Presen t illness [...] 2023 10:01 AM documented in this encounter [facility] 03-26-2022 History of Presen t illness [...] 2022 2:23 PM documented in this encounter [facility] 03-06-2022 Note HNO ID: [id number] Author: Rahel Rajput OD Service: ? Author Type: INSPECTOR WEIGHTS AND MEASURES Type: Progress Notes Filed: 03/06/2022 3:05 PM [...] the examination findings, diagnosis, and treatment options. [facility] 03-06-2022 History of Presen t illness [...] and treatment options. documented in this encounter [facility] 03-06-2022 Instructions Rahel Rajput OD - 03/06/2022 3:01 PM EDT Please call the office immediately if you notice flashes of light, a sudden increase in floaters, or a sudden change in vision. Systane Complete Artificial Tears, 1 drop, three times a day, both eyes. Please call the office with decreased vision or increased eye pain. documented in this encounter [facility] 08-04-2018 History of Past i llness Narrative Problem Noted Date Resolved Date Combined form of age-related cataract, right eye 08/04/2018 08/04/2018 Combined forms of age-related cataract of left e ye 07/06/2018 07/21/2018 Overview: Added automatically from request for surgery [id number] Combined form of age-related cataract, left eye 07/06/2018 07/21/2018 Overview: Added automatically from request for surgery [id number] Combined forms of age-related cataract of right eye 07/05/2018 08/05/2018 Regular astigmatism of left eye 07/05/2018 07/21/2018 Regular astigmatism of right eye 07/05/2018 08/04/2018 documented as of this encounter (statuses as of 03/06/2022) [facility] History of Past illness Narrative* Problem Noted Date Resolved Date Combined form of age-related cataract, right eye 08/04/2018 08/04/2018 Combined forms of age-related cataract of left e ye 07/06/2018 07/21/2018 Overview: Added automatically from request for surgery [id number] Combined form of age-related cataract, left eye 07/06/2018 07/21/2018 Overview: Added automatically from request for surgery [id number] Combined forms of age-related cataract of right eye 07/05/2018 08/05/2018 Regular astigmatism of left eye 07/05/2018 07/21/2018 Regular astigmatism of right eye 07/05/2018 08/04/2018 documented as of this encounter (statuses as of 03/27/2022) [facility] History of Past illness Narrative* Problem Noted Date Diagnosed Date Resolved Date Combined form of age-related cataract, right eye 08/04/2018 08/04/2018 Combined forms of age-relate d cataract of left eye 07/06/2018 07/21/2018 Overview: Added automatically from request for surgery [id number] Combined form of age-related cataract, left eye 07/06/2018 07/21/2018 Overview: Added automatically from request for surgery [id number] Combined forms of age-relate d cataract of right eye 07/05/2018 08/05/2018 Regular astigmatism of left eye 07/05/2018 07/21/2018 Regular astigmatism of right eye 07/05/2018 08/04/2018 documented as of this encounter (statuses as of 04/22/2023) [facility] History of Past illness Narrative* Problem Noted Date Diagnosed Date Resolved Date Combined form of age-related cataract, right eye 08/04/2018 08/04/2018 Combined forms of age-relate d cataract of left eye 07/06/2018 07/21/2018 Overview: Added automatically from request for surgery [id number] Combined form of age-related cataract, left eye 07/06/2018 07/21/2018 Overview: Added automatically from request for surgery [id number] Combined forms of age-relate d cataract of right eye 07/05/2018 08/05/2018 Regular astigmatism of left eye 07/05/2018 07/21/2018 Regular astigmatism of right eye 07/05/2018 08/04/2018 documented as of this encounter (statuses as of 04/24/2023) [facility] Diagnosis Onset Date Resolution Status Maxillary sinusitis, acute a cute Right acute otitis media acu te Cystitis acute Hematuria due to acute cystitis acute Right acute otitis media acu te [facility] Work Phone: Evaluation note* Diagnosis Posterior vitreous detachment of both eyes- Primary Vitreous degeneration Dry eye syndrome of both eyes Pseudophakia of both eyes Lens replaced by other means Refractive error Unspecified disorder of refraction and accommodation documented in this encounter [facility] Diagnosis Onset Date Resolution Status Maxillary sinusitis, acute a cute Right acute otitis media acu te Cystitis acute Hematuria due to acute cystitis acute Right acute otitis media acu te Cystitis acute Dysuria acute [facility] Work Phone: Evaluation note* Diagnosis Onset Date Resolution Status Diverticulitis large intestine acute LLQ abdominal pain acute [facility] Work Phone: Summary Purpose Family History No [...] the event of a Fluress shortage, administer Donalds-Fluor 1 drop into both eyes as directed [...] section and content) DATE CREATED AUTHOR 08/31/2020 [facility] DATE CREATED AUTHOR AUTHOR'S ORGANIZ ATION 03/10/2022 [facility] DATE CREATED AUTHOR AUTHOR'S ORGANIZ ATION 04/05/2024 [facility] DATE CREATED AUTHOR AUTHOR'S ORGANIZ ATION 05/21/2024 [facility] Goals (unrecognized section and content) Goals [...] or prosecute any alcohol or drug abuse patient.[facility] the event this information is protected by the Federal Confidentiality of Alcohol and Drug Abuse Patient Records regulations: The Federal rules restrict any use of the information to criminally investigate or prosecute any alcohol or drug abuse patient.[facility] the event this information is protected by the Federal Confidentiality of Alcohol and Drug Abuse Patient Records regulations: The Federal rules restrict any use of the information to criminally investigate or prosecute any alcohol or drug abuse patient.[facility] the event this information is protected by the Federal Confidentiality of Alcohol and Drug Abuse Patient Records regulations: The Federal rules restrict any use of the information to criminally investigate or prosecute any alcohol or drug abuse patient.[facility] Reason for Visit (unrecogniz ed section and content) Reason Comments Floaters Both Eyes Flashes Both Eyes Care Teams (unrecognized sec tion and content) Funeral Arrangement Director Relationship Specialty Start Date End Date Tru Avila, CAR SEAT COVERER.EMBROIDERY FINISHER [address] [place] [address] PCP - General Family Medicine 12/19/15 Funeral Arrangement Director Relationship Specialty Start Date End Date Tru Avila, CAR SEAT COVERER.EMBROIDERY FINISHER PCP - General Family Medicine 12/19/15 Team Status: Active Member Role Status Dates Tru Avila PIECE JOBBER, PIECE JOBBER-C Family Provider Active Tru Avila PIECE JOBBER, PIECE JOBBER-C Primary Care Provider Active Team Status: Inactive Member Role Status Dates Tru Avila PIECE JOBBER, PIECE JOBBER-C Primary Care Pr ovider, Attending Provider, Referring Provider Active Team Status: Inactive Member Role Status Dates Tru Avila PIECE JOBBER, PIECE JOBBER-C Primary Care Provider, Attend ing Provider Active Funeral Arrangement Director Relationship Specialty Start Date End Date Tru Avila, CAR SEAT COVERER.EMBROIDERY FINISHER [address] [place] [address] PCP - General Family Medicine 12/19/15 Funeral Arrangement Director Relationship Specialty Start Date End Date Tru Avila, CAR SEAT COVERER.EMBROIDERY FINISHER [address] [place] [address] PCP - General Family Medicine [...] BE BASED ON THE PRIMARY CLINICAL RECORDS. [facility]. provides no warranty or guarantee of the accuracy or completeness of information in this document.
[2025-03-01 22:04] LABS: Hematocrit 37.9 % (37-47); Hemoglobin 13.2 g/dL (12.0-15.0); Immature Granulocytes Count 0.020 X10^3/uL (0.0-0.0); Mean Corp Hgb Conc 34.8 g/dL (32-36); Mean Corpuscular Volume 86.5 fL (81-99); Mean Platelet Vol. 10.4 fl (6.2-12.0); NRBC Flagged by Analyzer 0 % (0-5); Platelet Count 347 K/mm3 (150-450); RBC Distribution Width CV 13.2 % (11.6-14.6); RBC Distribution Width SD 41.2 fl (35.1-43.9); Red Blood Count 4.38 M/mm3 (4.2-5.4); White Blood Count 7.9 K/mm3 (4.4-11.0)
[2025-03-01 22:25] LABS: AST(SGOT) 21 U/L (<=31); Alanine Aminotransfer ALT/SGPT 14 U/L (<=34); Albumin, Serum 4.4 g/dL (3.4-4.8); Alkaline Phosphatase 83 U/L (35-104); Anion Gap 14 (5-15); BUN 29 mg/dL (4-19); BUN/Creat Ratio 42.2 RATIO (10-20); Calcium,Total 9.8 mg/dL (7.6-11.0); Carbon Dioxide 20.4 mmol/L (21.0-32.0); Chloride 105 mmol/L (98-108); Globulin 3.2 g/dL (2.2-4.2); Glucose 100 mg/dL (70-99); Magnesium 2.2 mg/dL (1.5-2.2); Potassium 3.9 mmol/L (3.3-5.1)
[2025-03-01 23:06] LABS: PTHIN 64 pg/mL (11-61)
[2025-03-02 14:00] LABS: Vitamin D,25 Hydroxy 35.0 ng/mL (30-100)
== END | disposition home or self-care (01) ==
PROVIDERS: PCP Nurse Practitioner; Visit Provider Nurse Practitioner
DX: E55.9 Vitamin D deficiency, unspecified (principal); R79.89 Other specified abnormal findings of blood chemistry; R61 Generalized hyperhidrosis; D64.9 Anemia, unspecified; R25.2 Cramp and spasm; E87.6 Hypokalemia; R45.83 Excessive crying of child, adolescent or adult
CPT/HCPCS: 80053; 82306; 83735; 83970; 84443; 85025

== ENCOUNTER → 2025-05-16 | Outpatient (CLI) | payer MEDICARE, OTHER, SELFPAY ==
--- OUTSIDE RECORDS SUMMARY | 2025-05-16 21:50 | XMS RPT_ITS | CCD ---
Author Organization [facility] Inform ion Partnership [facility] Care Team Providers Care Route Sales Delivery Drivers Supervisor Name Role Phone Benny BANK CREDIT CARD COLLECTION CLERK.Tru KASPER Primary Care Provide r TRU AVILA Primary Care Unavailable RAHEL RAJPUT Attending Unavailable Benny BANK CREDIT CARD COLLECTION CLERK.MAJO Tru L Primary Care Provide r Benny BANK CREDIT CARD COLLECTION CLERK.Tru KASPER Primary Care Provide r TRU AVILA Primary Care Unavailable EVI HALL Attending Unavailable TRU AVILA Primary Care Unavailable Benny GPS FIELD DATA COLLECTOR, Tru Attending Unavailable Benny GPS FIELD DATA COLLECTOR, Tru Primary Care Unavailable Allergies Allergy Classification Reported Allergen(s) Allergy Type Date of Onset Reaction(s) Facility (3 sources) Sulfamethoxazole Drug Allergy 06-03-20 18 [facility] (10 sources) Sulfonamides (Antibiotic); Translations: [SULFA (SULFONAMIDE ANTIBIOTICS)] Allergy to substance 05-06-20 05 [facility] (3 sources) Trimethoprim Drug Allergy 06-03-20 18 [facility] (1 source) Flu Shot Propensity to adverse reactions 03-01-20 19 Redness, swelling of arms. [facility] Work Phone: (6 sources) Ketorolac; Translations: [KETOROLAC] Drug Allergy 07-26-19 19 Other: See Comments [facility] Work Phone: (2 sources) Influenza Vaccines Propensity to adverse reactions 03-10-20 Other [facility] (1 source) Sulfamethoxazole Drug Allergy 06-03-20 18 [facility] (1 source) Trimethoprim Drug Allergy 06-03-20 18 [facility] (1 source) Influenza Virus Vaccines Drug allergy (disorder) 03-10-20 [facility] Medications Current Medications Medication Drug Class(es) [...] PO THREE TIMES A DAY 30 January 29, 2023 12:00am Start: 08-01-2021 End: 08-11-2021 take 250 mg by mouth three times daily Metronidazole Discontinued 250 MG PO THREE TIMES A DAY 30 August 01, 2021 1:00am August 11, 2021 1:04am Start: 01-11-2020 End: 01-21-2020 take 250 mg by mouth three times daily Metronidazole Discontinued 250 MG PO THREE TIMES A DAY 30 January 11, 2020 12:00am January 21, 2020 12:02am phenylephrine [...] MG PO DAILY May 16, 2019 1:00am August 01, 2021 7:18pm methocarbamol 500 mg oral tablet (7 sources) Muscle Relaxant Start: 06-03-2018 End: 11-26-2021 take 1 tablet by mouth three times daily for muscle spasms methocarbamol (ROBAXIN) 500 mg tablet TAKE 1 TABLET BY MOUTH 3 TIMES A DAY FOR MUSCLE SPASM 1 06/03/2018 Active Comment on above: TAKE 1 TABLET BY TOI 3 TIMES A DAY FOR MUSCLE SPASM [...] pain; Translations: [Chest pain, unspecified] 05-16-2019 Episodic Nutritional deficiencies (1 source) Vitamin D deficiency, unspecified; Translations: [Vitamin D deficiency, unspecified] Onset: 03-31-2025 Chronic Other bone disease and musculoskeletal deformities (3 [...] [Dorsalgia, unspecified] 02-28-2019 Episodic Urinary tract infections (6 sources) Hematuria co-occurrent and due to acute cystitis; Translations: [Acute cystitis with hematuria] 02-28-2019 Episodic Past or Other Problems Problem [...] Test Name Value Interpretation Reference Range Facility Vitamin D,25 Hydroxyon 03-02 Vitamin D 25-OH 35.0 ng/mL Normal 30-100 [facility] Comment on above: Result Comment: Vilma min D Status Deficiency: <20 ng/mL (50nmol/L) Insufficiency: 20-30 ng/mL (50-75 nmol/L) Sufficiency: 30-100 ng/mL (75-250 nmol/L) Toxicity: >100 ng/mL (>250 nmol/L) Performed By: #### L 506.1001 #### [facility] [address] [place], [address] CBC W/Diff, Automatedon - Absolute Lymph 2.34 X10 3/uL Normal 0.83-4.51 [facility] Comment on above: Performed By: #### L 501.5200, L509.1000, L100.0100, L500.4050, L501.9520 #### [facility] [address] [place], [address] Absolute Neut 4.8 X10 3/uL Normal 2.0-7.7 [facility] Comment on above: Performed By: #### L 501.5200, L509.1000, L100.0100, L500.4050, L501.9520 #### [facility] [address] [place], [address] Basophils/100 WBC (Bld) 0.5 % Normal 0-1 [facility] Comment on above: Performed By: #### L 501.5200, L509.1000, L100.0100, L500.4050, L501.9520 #### [facility] [address] [place], [address] Eosinophils/100 WBC (Bld) 1.0 % Normal 0-5 [facility] Comment on above: Performed By: #### L 501.5200, L509.1000, L100.0100, L500.4050, L501.9520 #### [facility] [address] [place], [address] Erythrocyte distribution width (RBC) [Ratio] 13.2 % Normal 11.6-14.6 [facility] Comment on above: Performed By: #### L 501.5200, L509.1000, L100.0100, L500.4050, L501.9520 #### [facility] [address] [place], [address] Hematocrit (Bld) [Volume fraction] 37.9 % Normal 37-47 [facility] Comment on above: Performed By: #### L 501.5200, L509.1000, L100.0100, L500.4050, L501.9520 #### [facility] [address] [place], [address] Hemoglobin (Bld) [Mass/Vol] 13.2 g/dL Normal 12.0-15.0 [facility] Comment on above: Performed By: #### L 501.5200, L509.1000, L100.0100, L500.4050, L501.9520 #### [facility] [address] [place], [address] IG% 0.300 Normal 0.0-0.9 [facility] Comment on above: Result Comment: IG% - Immature Granulocytes (promyelocytes, myelocytes and metamyelocytes) > 1% indicates that a LEFT SHIFT is Present. Performed By: #### L 501.5200, L509.1000, L100.0100, L500.4050, L501.9520 #### [facility] [address] [place], [address] Lymphocytes/100 WBC (Bld) 29.7 % Normal 19-41 [facility] Comment on above: Performed By: #### L 501.5200, L509.1000, L100.0100, L500.4050, L501.9520 #### [facility] [address] [place], [address] MCH (RBC) [Entitic mass] 30.1 pg Normal 27.0-32.0 [facility] Comment on above: Performed By: #### L 501.5200, L509.1000, L100.0100, L500.4050, L501.9520 #### [facility] [address] [place], [address] MCHC (RBC) [Mass/Vol] 34.8 g/dL Normal 32-36 [facility] Comment on above: Performed By: #### L 501.5200, L509.1000, L100.0100, L500.4050, L501.9520 #### [facility] [address] [place], [address] MCV (RBC) [Entitic vol] 86.5 fL Normal 81-99 [facility] Comment on above: Performed By: #### L 501.5200, L509.1000, L100.0100, L500.4050, L501.9520 #### [facility] [address] [place], [address] Monocytes/100 WBC (Bld) 7.2 % Normal 0-10 [facility] Comment on above: Performed By: #### L 501.5200, L509.1000, L100.0100, L500.4050, L501.9520 #### [facility] [address] [place], [address] Neutrophils/100 WBC (Bld) 61.3 % Normal 47-70 [facility] Comment on above: Performed By: #### L 501.5200, L509.1000, L100.0100, L500.4050, L501.9520 #### [facility] [address] [place], [address] Nucleated RBC (Bld) [#/Vol] 0 10*3/uL Normal 0-5 [facility] Comment on above: Performed By: #### L 501.5200, L509.1000, L100.0100, L500.4050, L501.9520 #### [facility] [address] [place], [address] Platelet mean volume (Bld) [Entitic vol] 10.4 fL Normal 6.2-12.0 [facility] Comment on above: Performed By: #### L 501.5200, L509.1000, L100.0100, L500.4050, L501.9520 #### [facility] [address] [place], [address] Platelets (Bld) [#/Vol] 347 10*3/uL Normal 150-450 [facility] Comment on above: Performed By: #### L 501.5200, L509.1000, L100.0100, L500.4050, L501.9520 #### [facility] [address] [place], [address] RBC (Bld) [#/Vol] 4.38 10*6/uL Normal 4.2-5.4 [facility] Comment on above: Performed By: #### L 501.5200, L509.1000, L100.0100, L500.4050, L501.9520 #### [facility] [address] [place], [address] RDW SD 41.2 fl Normal 35.1-43.9 [facility] Comment on above: Performed By: #### L 501.5200, L509.1000, L100.0100, L500.4050, L501.9520 #### [facility] [address] [place], [address] WBC (Bld) [#/Vol] 7.9 10*3/uL Normal 4.4-11.0 [facility] Comment on above: Performed By: #### L 501.5200, L509.1000, L100.0100, L500.4050, L501.9520 #### [facility] [address] [place], [address] Comprehensive Metabolic [facility] 03-01-2025 Albumin [Mass/Vol] 4.4 g/dL Normal 3.4-4.8 [facility] Comment on above: Performed By: #### L 501.5200, L509.1000, L100.0100, L500.4050, L501.9520 #### [facility] [address] [place], [address] Albumin/Globulin [Mass ratio] 1.4 {ratio} Normal 0.9-2.4 [facility] Comment on above: Performed By: #### L 501.5200, L509.1000, L100.0100, L500.4050, L501.9520 #### [facility] [address] [place], [address] ALK PHOS 83 U/L Normal 35-104 [facility] Comment on above: Performed By: #### L 501.5200, L509.1000, L100.0100, L500.4050, L501.9520 #### [facility] [address] [place], [address] ALT [Catalytic activity/Vol] 14 U/L Normal <=34 [facility] Comment on above: Performed By: #### L 501.5200, L509.1000, L100.0100, L500.4050, L501.9520 #### [facility] [address] [place], [address] AST [Catalytic activity/Vol] 21 U/L Normal <=31 [facility] Comment on above: Performed By: #### L 501.5200, L509.1000, L100.0100, L500.4050, L501.9520 #### [facility] [address] [place], [address] Bilirubin [Mass/Vol] 0.23 mg/dL Normal 0.00-1.30 [facility] Comment on above: Performed By: #### L 501.5200, L509.1000, L100.0100, L500.4050, L501.9520 #### [facility] [address] [place], [address] BUN/CRE 42.2 RATIO High 10-20 [facility] Comment on above: Performed By: #### L 501.5200, L509.1000, L100.0100, L500.4050, L501.9520 #### [facility] [address] [place], [address] Calcium [Mass/Vol] 9.8 mg/dL Normal 7.6-11.0 [facility] Comment on above: Performed By: #### L 501.5200, L509.1000, L100.0100, L500.4050, L501.9520 #### [facility] [address] [place], [address] Chloride [Moles/Vol] 105 mmol/L Normal 98-108 [facility] Comment on above: Performed By: #### L 501.5200, L509.1000, L100.0100, L500.4050, L501.9520 #### [facility] [address] [place], [address] CO2 [Moles/Vol] 20.4 mmol/L Low 21.0-32.0 [facility] Comment on above: Performed By: #### L 501.5200, L509.1000, L100.0100, L500.4050, L501.9520 #### [facility] [address] [place], [address] Creatinine [Mass/Vol] 0.69 mg/dL Low 0.70-1.20 [facility] Comment on above: Performed By: #### L 501.5200, L509.1000, L100.0100, L500.4050, L501.9520 #### [facility] [address] [place], [address] GAP 14 Normal 5-15 [facility] Comment on above: Performed By: #### L 501.5200, L509.1000, L100.0100, L500.4050, L501.9520 #### [facility] [address] [place], [address] GFR/1.73 sq M.predicted among non-blacks MDRD (S/P/Bld) [Vol rate/Area] 89 mL/min/{1.73_m2} Normal >60 [facility] Comment on above: Result Comment: mL/m in/1.73m2 CKD-EPI Creatinine Equation (2020) Performed By: #### L 501.5200, L509.1000, L100.0100, L500.4050, L501.9520 #### [facility] [address] [place], [address] Globulin (S) [Mass/Vol] 3.2 g/dL Normal 2.2-4.2 [facility] Comment on above: Performed By: #### L 501.5200, L509.1000, L100.0100, L500.4050, L501.9520 #### [facility] [address] [place], [address] Glucose [Mass/Vol] 100 mg/dL High 70-99 [facility] Comment on above: Performed By: #### L 501.5200, L509.1000, L100.0100, L500.4050, L501.9520 #### [facility] [address] [place], [address] Potassium [Moles/Vol] 3.9 mmol/L Normal 3.3-5.1 [facility] Comment on above: Performed By: #### L 501.5200, L509.1000, L100.0100, L500.4050, L501.9520 #### [facility] [address] [place], [address] Sodium [Moles/Vol] 139 mmol/L Normal 133-145 [facility] Comment on above: Performed By: #### L 501.5200, L509.1000, L100.0100, L500.4050, L501.9520 #### [facility] [address] [place], [address] T PROT 7.6 g/dL Normal 5.9-8.4 [facility] Comment on above: Performed By: #### L 501.5200, L509.1000, L100.0100, L500.4050, L501.9520 #### [facility] [address] [place], [address] Urea nitrogen [Mass/Vol] 29 mg/dL High 4-19 [facility] Comment on above: Performed By: #### L 501.5200, L509.1000, L100.0100, L500.4050, L501.9520 #### [facility] [address] [place], [address] Magnesiumon 03-01-2025 Magnesium [Mass/Vol] 2.2 mg/dL Normal 1.5-2.2 [facility] Comment on above: Performed By: #### L 501.5200, L509.1000, L100.0100, L500.4050, L501.9520 #### [facility] [address] [place], [address] PTHINon 03-01-2025 PTH 64 pg/mL High [facility] Comment on above: Performed By: #### L 501.5200, L509.1000, L100.0100, L500.4050, L501.9520 #### [facility] [address] [place], [address] Thyroid Stim Hormone (TSH)on 03-01-2025 TSH 2.420 uIU/mL Normal 0.300-4.200 [facility] Comment on above: Performed By: #### L 501.5200, L509.1000, L100.0100, L500.4050, L501.9520 #### [facility] [address] [place], [address] CARSON SCREENING W TOMOon 05-18 CARSON SCREENING W CRYSTAL * * *Final Report* * * DATE OF EXAM: May 18 2024 3:20PM [facility]DW 0582 - CARSON SCREENING W CRYSTAL / PROCEDURE REASON: Z12.31 Breast screening for cancer by mammogram * * * * Physician Interpretation * * * * [address] [address] #[id number] - CARSON SCREENING W CRYSTAL HISTORY: Patient [...] Xiao Velazco M.D. Electronically signed on: 05/19/2024 [employer] Architect: NICHELLE Transcribe Date/Time: May 18 2024 2:55P Dictated by : XIAO VELAZCO MD This examination was interpreted and the report reviewed and electronically signed by: XIAO VELAZCO MD on May 19 2024 11:34AM EST [id number] Normal [facility] CBC W Auto Differential pane l (Bld)on 03-17-2024 Basophils (Bld) [#/Vol] 0.04 10*3/uL Normal <0.11 [facility] Comment on above: Order Comment: Speci men Type: BLOOD SPECIMEN Ordering Facility: [facility] Address: [address] [place] [address] Performed By: #### 5 7021-8 #### [facility] CLIA [id number] [address] [place] [address] [place] Basophils/100 WBC (Bld) 0.7 % Normal [facility] Comment on above: Order Comment: Speci men Type: BLOOD SPECIMEN Ordering Facility: [facility] Address: [address] [place] [address] Performed By: #### 5 7021-8 #### [facility] CLIA [id number] [address] [place] [id number] [place] Differential cell count method Nom (Bld) Auto Normal [facility] Comment on above: Order Comment: Speci men Type: BLOOD SPECIMEN Ordering Facility: [facility] Address: [address] [place] [address] Performed By: #### 5 7021-8 #### [facility] CLIA [id number] [address] [place] [address] [place] Eosinophils (Bld) [#/Vol] 0.06 10*3/uL Normal <0.46 [facility] Comment on above: Order Comment: Speci men Type: BLOOD SPECIMEN Ordering Facility: [facility] Address: [address] [place] [address] Performed By: #### 5 7021-8 #### [facility] CLIA [id number] [address] [place] [id number] [place] Eosinophils/100 WBC (Bld) 1.0 % Normal [facility] Comment on above: Order Comment: Speci men Type: BLOOD SPECIMEN Ordering Facility: [facility] Address: [address] [place] [address] Performed By: #### 5 7021-8 #### [facility] CLIA [id number] [address] [place] [address] [place] Erythrocyte distribution width (RBC) [Ratio] 12.9 % Normal 11.5-15.0 [facility] Comment on above: Order Comment: Speci men Type: BLOOD SPECIMEN Ordering Facility: [facility] Address: [address] [place] [address] Performed By: #### 5 7021-8 #### [facility] CLIA [id number] [address] [place] [address] [place] Hematocrit (Bld) [Volume fraction] 36.7 % Normal 36.0-46.0 [facility] Comment on above: Order Comment: Speci men Type: BLOOD SPECIMEN Ordering Facility: [facility] Address: [address] [place] [address] Performed By: #### 5 7021-8 #### [facility] CLIA [id number] [address] [place] [address] [place] Hemoglobin (Bld) [Mass/Vol] 12.2 g/dL Normal 11.5-15.5 [facility] Comment on above: Order Comment: Speci men Type: BLOOD SPECIMEN Ordering Facility: [facility] Address: [address] [place] [address] Performed By: #### 5 7021-8 #### [facility] CLIA [id number] [address] [place] [address] [place] Immature granulocytes (Bld) [#/Vol] 10*3/uL Normal <0.10 [facility] Comment on above: Order Comment: Speci men Type: BLOOD SPECIMEN Ordering Facility: [facility] Address: [address] [place] [address] Performed By: #### 5 7021-8 #### [facility] CLIA [id number] [address] [place] [address] [place] Immature granulocytes/100 WBC (Bld) 0.0 % Normal [facility] Comment on above: Order Comment: Speci men Type: BLOOD SPECIMEN Ordering Facility: [facility] Address: [address] [place] [address] Performed By: #### 5 7021-8 #### [facility] CLIA [id number] [address] [place] [address] [place] Lymphocytes (Bld) [#/Vol] 1.81 10*3/uL Normal 1.00-4.00 [facility] Comment on above: Order Comment: Speci men Type: BLOOD SPECIMEN Ordering Facility: [facility] Address: [address] [place] [address] Performed By: #### 5 7021-8 #### [facility] CLIA [id number] [address] [place], [place] [id number] [place] [address] [place] Lymphocytes/100 WBC (Bld) 31.4 % Normal [facility] Comment on above: Order Comment: Speci men Type: BLOOD SPECIMEN Ordering Facility: [facility] Address: [address] [place] [address] Performed By: #### 5 7021-8 #### [facility] CLIA [id number] [address] [place] [address] [place] MCH (RBC) [Entitic mass] 29.4 pg Normal 26.0-34.0 [facility] Comment on above: Order Comment: Speci men Type: BLOOD SPECIMEN Ordering Facility: [facility] Address: [address] [place] [address] Performed By: #### 5 7021-8 #### [facility] CLIA [id number] [address] [place] [address] [place] MCHC (RBC) [Mass/Vol] 33.2 g/dL Normal 30.5-36.0 [facility] Comment on above: Order Comment: Speci men Type: BLOOD SPECIMEN Ordering Facility: [facility] Address: [address] [place] [address] Performed By: #### 5 7021-8 #### [facility] CLIA [id number] [address] [place] [address] [place] MCV (RBC) [Entitic vol] 88.4 fL Normal 80.0-100.0 [facility] Comment on above: Order Comment: Speci men Type: BLOOD SPECIMEN Ordering Facility: [facility] Address: [address] [place] [address] Performed By: #### 5 7021-8 #### [facility] CLIA [id number] [address] [place] [address] [place] Monocytes (Bld) [#/Vol] 0.61 10*3/uL Normal <0.87 [facility] Comment on above: Order Comment: Speci men Type: BLOOD SPECIMEN Ordering Facility: [facility] Address: [address] [place] [address] Performed By: #### 5 7021-8 #### [facility] CLIA [id number] [address] [place] Monocytes/100 WBC (Bld) 10.6 % Normal [facility] Comment on above: Order Comment: Speci men Type: BLOOD SPECIMEN Ordering Facility: [facility] Address: [address] [place] [address] Performed By: #### 5 7021-8 #### [facility] CLIA [id number] [address] [place] [address] [place] Neutrophils (Bld) [#/Vol] 3.24 10*3/uL Normal 1.45-7.50 [facility] Comment on above: Order Comment: Speci men Type: BLOOD SPECIMEN Ordering Facility: [facility] Address: [address] [place] [address] Performed By: #### 5 7021-8 #### [facility] CLIA [id number] [address] [place] [address] [place] Neutrophils/100 WBC (Bld) 56.3 % Normal [facility] Comment on above: Order Comment: Speci men Type: BLOOD SPECIMEN Ordering Facility: [facility] Address: [address] [place] [address] Performed By: #### 5 7021-8 #### [facility] CLIA [id number] [address] [place] [address] [place] Nucleated RBC (Bld) [#/Vol] Normal [facility] Comment on above: Order Comment: Speci men Type: BLOOD SPECIMEN Ordering Facility: [facility] Address: [address] [place] [address] Performed By: #### 5 7021-8 #### [facility] CLIA [id number] [address] [place] [address] [place] Nucleated RBC/100 WBC (Bld) [Ratio] Normal [facility] Comment on above: Order Comment: Speci men Type: BLOOD SPECIMEN Ordering Facility: [facility] Address: [address] [place] [address] Performed By: #### 5 7021-8 #### [facility] CLIA [id number] [address] [place] [address] [place] Platelet mean volume (Bld) [Entitic vol] 9.4 fL Normal 9.0-12.7 [facility] Comment on above: Order Comment: Speci men Type: BLOOD SPECIMEN Ordering Facility: [facility] Address: [address] [place] [address] Performed By: #### 5 7021-8 #### [facility] CLIA [id number] [address] [place] [address] [place] Platelets (Bld) [#/Vol] 289 10*3/uL Normal 150-400 [facility] Comment on above: Order Comment: Speci men Type: BLOOD SPECIMEN Ordering Facility: [facility] Address: [address] [place] [address] Performed By: #### 5 7021-8 #### [facility] CLIA [id number] [address] [place] [address] [place] RBC (Bld) [#/Vol] 4.15 10*6/uL Normal 3.90-5.20 [facility] Comment on above: Order Comment: Speci men Type: BLOOD SPECIMEN Ordering Facility: [facility] Address: [address] [place] [address] Performed By: #### 5 7021-8 #### [facility] CLIA [id number] [address] [place] [address] [place] WBC (Bld) [#/Vol] 5.76 10*3/uL Normal 3.70-11.00 [facility] Comment on above: Order Comment: Speci men Type: BLOOD SPECIMEN Ordering Facility: [facility] Address: [address] [place], [place] [id number] Performed By: #### 5 7021-8 #### [facility] [facility] CLIA [id number] [address] [place] [address] [facility] CT ABD/PEL W IVCONon 10-10-[address] ABD/PEL W IVCON * * *Final Report* * * DATE OF EXAM: Mar 17 2024 7:04AM [facility] 0530 - CT ABD/PEL W IVCON / [...] acute diverticulitis. 2. Small fat-containing umbilical hernia [employer] Solution Architect: PSC[employer] Transcribe Date/Time: Mar 17 2024 8:04A Dictated by : CHRISTIN GARRIDO MD This examination was interpreted and the report reviewed and electronically signed by: CHRISTIN GARRIDO MD on Mar 17 2024 8:11AM EST [id number] Normal [facility] Comprehensive metabolic 2000 panelon 03-17-2024 Albumin [Mass/Vol] 4.2 g/dL Normal 3.9-4.9 [facility] Comment on above: Order Comment: Speci sruthi Type: BLOOD SPECIMEN Ordering Facility: [facility] Address: [address] [place] [address] Performed By: #### 2 4323-8, 3040-3 #### [facility] CLIA [id number] [address] [place] [address] [place] [facility] ALP [Catalytic activity/Vol] 77 U/L Normal 34-123 [facility] Comment on above: Order Comment: Sharon negro Type: BLOOD SPECIMEN Ordering Facility: [facility] Address: [address] [place] [address] Performed By: #### 2 4323-8, 0-3 #### [facility] CLIA [id number] [address] [place] [address] [place] [facility] ALT With P-5'-P [Catalytic activity/Vol] 11 U/L Normal 7-38 [facility] Comment on above: Order Comment: Sharon negro Type: BLOOD SPECIMEN Ordering Facility: [facility] Address: [address] [place] [address] Performed By: #### 2 4323-8, 3040-3 #### [facility] CLIA [id number] [address] [place] [address] [place] Anion gap [Moles/Vol] 11 mmol/L Normal 8-15 [facility] Comment on above: Order Comment: Speci men Type: BLOOD SPECIMEN Ordering Facility: [facility] Address: [address] [place] [address] Performed By: #### 2 4323-8, 3040-3 #### [facility] CLIA [id number] [address] [place] [address] [place] AST With P-5'-P [Catalytic activity/Vol] 18 U/L Normal 13-35 [facility] Comment on above: Order Comment: Speci men Type: BLOOD SPECIMEN Ordering Facility: [facility] Address: [address] [place] [address] Performed By: #### 2 4323-8, 0-3 #### [facility] CLIA [id number] [address] [place] [address] [place] Bilirubin [Mass/Vol] 0.5 mg/dL Normal 0.2-1.3 [facility] Comment on above: Order Comment: Speci men Type: BLOOD SPECIMEN Ordering Facility: [facility] Address: [address] [place] [address] Performed By: #### 2 4323-8, 3040-3 #### [facility] CLIA [id number] [address] [place] [address] [place] Calcium [Mass/Vol] 9.2 mg/dL Normal 8.5-10.2 [facility] Comment on above: Order Comment: Speci men Type: BLOOD SPECIMEN Ordering Facility: [facility] Address: [address] [place] [address] Performed By: #### 2 4323-8, 3040-3 #### [facility] CLIA [id number] [address] [place] [address] [place] Chloride [Moles/Vol] 104 mmol/L Normal 98-107 [facility] Comment on above: Order Comment: Speci men Type: BLOOD SPECIMEN Ordering Facility: [facility] Address: [address] [place], [place] [address] Performed By: #### 2 4323-8, 3040-3 #### [facility] CLIA [id number] [address] [place] [address] [place] CO2 [Moles/Vol] 26 mmol/L Normal 22-30 [facility] Comment on above: Order Comment: Speci men Type: BLOOD SPECIMEN Ordering Facility: [facility] Address: [address] [place] [address] Performed By: #### 2 4323-8, 3039-3 #### [facility] CLIA [id number] [address] [place] [address] [place] [facility] Creatinine [Mass/Vol] 0.84 mg/dL Normal 0.58-0.96 [facility] Comment on above: Order Comment: Speci men Type: BLOOD SPECIMEN Ordering Facility: [facility] Address: [address] [place] [address] Performed By: #### 2 4323-8, 3039-3 #### [facility] CLIA [id number] [address] [place] [address] [facility] Creatinine and Glomerular filtration rate.predicted panel (S/P/Bld) 72 mL/min/1.73m??? Normal >=60 [facility] Comment on above: Order Comment: Speci men Type: BLOOD SPECIMEN Ordering Facility: [facility] Address: [address] [place] [address] Result Comment: Estefany mated Glomerular Filtration Rate [...] actual GFR. Performed By: #### 2 4323-8, 3040-3 #### [facility] CLIA [id number] [address] [place] [address] [place] Glucose [Mass/Vol] 95 mg/dL Normal 74-99 [facility] Comment on above: Order Comment: Sharon negro Type: BLOOD SPECIMEN Ordering Facility: [facility] Address: [address] [place] [address] Result Comment: The [place] Diabetes Association (ADA) provides guidance for cutoff [...] Standards of Medical Care in Diabetes 2016, [place] [employer] Association. Diabetes Care. 2016.39(Suppl 1). Performed By: #### 2 4323-8, 0-3 #### [facility] CLIA [id number] [address] [place] [address] [place] Potassium [Moles/Vol] 3.6 mmol/L Low 3.7-5.1 [facility] Comment on above: Order Comment: Sharon negro Type: BLOOD SPECIMEN Ordering Facility: [facility] Address: [address] [place] [address] Performed By: #### 2 4323-8, 0-3 #### [facility] CLIA [id number] [address] [place] [address] [place] Protein [Mass/Vol] 6.9 g/dL Normal 6.3-8.0 [facility] Comment on above: Order Comment: Sharon negro Type: BLOOD SPECIMEN Ordering Facility: [facility] Address: [address] [place] [address] Performed By: #### 2 4323-8, 3040-3 #### [facility] CLIA [id number] [address] [place] [address] [place] Sodium [Moles/Vol] 141 mmol/L Normal 136-144 [facility] Comment on above: Order Comment: Speci men Type: BLOOD SPECIMEN Ordering Facility: [facility] Address: [address] [place] [address] Performed By: #### 2 4323-8, 3040-3 #### [facility] CLIA [id number] [address] [place] [address] [facility] Urea nitrogen [Mass/Vol] 11 mg/dL Normal 7-21 [facility] Comment on above: Order Comment: Speci men Type: BLOOD SPECIMEN Ordering Facility: [facility] Address: [address] [place] [address] Performed By: #### 2 4323-8, 3040-3 #### [facility] CLIA [id number] [address] [place] [address] [facility] ED NOTEon 03-17-2024 ED NOTE HNO ID: [id number] Author: NGOZI SHARPE RN Service: ? Author [...] March 18, 2024 TIME: 11:[address] [facility] ED NOTE HNO ID: [id number] Author: ART KAMINSKI RN Service: Emergency Medicine Author Type: Registered Nurse Type: ED Notes Filed: 03/17/2024 08:25 Note Text: Bladder scan 198, pt sts she has a bladder sling and that is not uncommon for her Normal [facility] ED NOTE HNO ID: [id number] Author: HENRIK MUSTAFA RN Service: Emergency Medicine [...] this time. Has had intermittent fever. Normal [facility] ED PROV NOTEon 03-17-2024 ED PROV NOTE HNO ID: [id number] Author: EVI HALL MD Service: ? Author [...] AM PAGER/CONTACT #: EVI HALL 03/17/[address] [facility] ED PROV NOTE HNO ID: [id number] Author: LILA DEAN DO Service: Emergency Medicine [...] CVA tenderne (more content not included)... Normal [facility] Lactate (Bld) [Moles/Vol]on 03-17-2024 Lactate [Moles/Vol] 1.6 mmol/L Normal 0.5-2.2 [facility] Comment on above: Order Comment: Speci men Type: BLOOD SPECIMEN Ordering Facility: [facility] Address: [address] [place] [address] Performed By: #### 3 2693-4 #### [facility] CLIA [id number] [address] [place] [address] [place] Lipase SerPl-cCncon 03-17-20 24 Lipase [Catalytic activity/Vol] 38 U/L Normal 16-61 [facility] Comment on above: Order Comment: Speci men Type: BLOOD SPECIMEN Ordering Facility: [facility] Address: [address] [place] [address] Performed By: #### 2 4323-8, 3040-3 #### [facility] CLIA [id number] [address] [place] [address] [facility] Urinalysis complete panel (U )on 03-17-2024 Bilirubin Ql (U) Negative Normal Negative [facility] Comment on above: Order Comment: Speci men Type: URINE SPECIMEN Ordering Facility: [facility] Address: [address] [place] [address] Performed By: #### 2 4356-8 #### [facility] CLIA [id number] [address] [place] [address] [facility] Clarity (Unsp spec) Slightly Cloudy Abnormal Clear [facility] Comment on above: Order Comment: Speci men Type: URINE SPECIMEN Ordering Facility: [facility] Address: [address] [place] [address] Performed By: #### 2 4356-8 #### [facility] CLIA [id number] [address] [place] [address] [facility] Color (U) Yellow Normal Yellow [facility] Comment on above: Order Comment: Speci men Type: URINE SPECIMEN Ordering Facility: [facility] Address: [address] [place] [address] Performed By: #### 2 4356-8 #### [facility] CLIA [id number] [address] [place] [address] [place] Epithelial cells LM.HPF (Urine sed) [#/Area] Few Normal [facility] Comment on above: Order Comment: Speci men Type: URINE SPECIMEN Ordering Facility: [facility] Address: [address] [place] [address] Result Comment: Few Performed By: #### 2 4356-8 #### [facility] CLIA [id number] [address] [place] [address] [facility] [place] Glucose Test strip (U) [Mass/Vol] Negative Normal Negative [facility] Comment on above: Order Comment: Speci men Type: URINE SPECIMEN Ordering Facility: [facility] Address: [address] [place] [address] Performed By: #### 2 4356-8 #### [facility] CLIA [id number] [address] [place] [address] [facility] Hemoglobin Ql (U) Negative Normal Negative [facility] Comment on above: Order Comment: Speci men Type: URINE SPECIMEN Ordering Facility: [facility] Address: [address] [place] [address] Performed By: #### 2 4356-8 #### [facility] CLIA [id number] [address] [place] [address] [place] Ketones Ql (U) Negative Normal Negative [facility] Comment on above: Order Comment: Speci men Type: URINE SPECIMEN Ordering Facility: [facility] Address: [address] [place] [address] Performed By: #### 2 4356-8 #### [facility] CLIA [id number] [address] [place] [address] [place] Leukocyte esterase Test strip Ql (U) Negative Normal Negative [facility] Comment on above: Order Comment: Speci men Type: URINE SPECIMEN Ordering Facility: [facility] Address: [address] [place] [address] Performed By: #### 2 4356-8 #### [facility] CLIA [id number] [address] [place] [address] [place] Nitrite Ql (U) Negative Normal Negative [facility] Comment on above: Order Comment: Speci men Type: URINE SPECIMEN Ordering Facility: [facility] Address: [address] [place] [address] Performed By: #### 2 4356-8 #### [facility] CLIA [id number] [address] [place] [address] [place] pH (U) 7.0 [pH] Normal 5.0-8.0 [facility] Comment on above: Order Comment: Speci men Type: URINE SPECIMEN Ordering Facility: [facility] Address: [address] [place] [address] Performed By: #### 2 4356-8 #### [facility] CLIA [id number] [address] [place] [address] [place] Protein (U) [Mass/Vol] Negative Normal Negative [facility] Comment on above: Order Comment: Speci men Type: URINE SPECIMEN Ordering Facility: [facility] Address: [address] [place] [address] Performed By: #### 2 4356-8 #### [facility] CLIA [id number] [address] [place] [address] [place] RBC LM.HPF (Urine sed) [#/Area] 0-3 /HPF Normal 0-3 /HPF [facility] Comment on above: Order Comment: Speci men Type: URINE SPECIMEN Ordering Facility: [facility] Address: [address] [place] [address] Performed By: #### 2 4356-8 #### [facility] CLIA [id number] [address] [place] [address] [place] Specific gravity (U) [Rel density] 1.010 Normal 1.005-1.030 [facility] Comment on above: Order Comment: Speci men Type: URINE SPECIMEN Ordering Facility: [facility] Address: [address] [place] [address] Performed By: #### 2 4356-8 #### [facility] CLIA [id number] [address] Urobilinogen Ql (U) 0.2 EU/dL Normal 0.2-1.0 EU/dL [facility] Comment on above: Order Comment: Speci men Type: URINE SPECIMEN Ordering Facility: [facility] Address: [address] [place] [address] Performed By: #### 2 4356-8 #### [facility] CLIA [id number] [address] WBC LM.HPF (Urine sed) [#/Area] 0-5 /HPF Normal 0-5 /HPF [facility] Comment on above: Order Comment: Speci men Type: URINE SPECIMEN Ordering Facility: [facility] Address: [address] [place] [address] Performed By: #### 2 4356-8 #### [facility] CLIA [id number] [address] Absolute lymphocyte countOrd ered By: Tru Avila on 01-29-2023 Lymphocytes Auto (Unsp spec) [#/Vol] 2.50 10*3/uL 0.83-4.51 [facility] Basophil percentageOrdered B y: Tru Avila on 01-29-2023 Basophils/100 WBC (Bld) 0.4 % 0-1 [facility] Bilirubin [Mass/Vol] 0.30 mg/dL 0.20-1.00 [facility] Comment on above: For patients on eltr ombopag therapy, use of Dimension [place] TBIL is not recommended. Chloride [Moles/Vol] 109 mmol/L 98-107 [facility] Eosinophils/100 WBC (Bld) 0.9 % 0-5 [facility] Glucose [Mass/Vol] 133 mg/dL 74-106 [facility] Comment on above: Fasting Glucose resu lt greater than or equal to 126 mg/dL suggests DIABETES MELLITUS per A.D.A. criteria. Neutrophils (Bld) [#/Vol] 5.6 10*3/uL 2.0-7.7 [facility] Neutrophils/100 WBC (Bld) 62.4 % 47-70 [facility] Potassium [Moles/Vol] 3.5 mmol/L 3.5-5.1 [facility] Protein [Mass/Vol] 7.3 g/dL 6.4-8.2 [facility] Sodium [Moles/Vol] 143 mmol/L 136-145 [facility] WBC (Bld) [#/Vol] 9.0 10*3/uL 4.4-11.0 [facility] Blood erythrocytes count (nu mber/volume)Ordered By: Tru Avila on 01-29-2023 RBC (Bld) [#/Vol] 4.17 10*6/uL 4.2-5.4 [facility] Blood hemoglobin measurement (mass/volume)Ordered By: Tru Avila on 01-29-2023 Hemoglobin (Bld) [Mass/Vol] 12.0 g/dL 12.0-15.0 [facility] Blood lymphocytes/100 leukoc ytesOrdered By: Tru Avila on 01-29-2023 Lymphocytes/100 WBC (Bld) 27.7 % 19-41 [facility] Blood monocytes/100 leukocyt esOrdered By: Tru Avila on 01-29-2023 Monocytes/100 WBC (Bld) 8.4 % 0-10 [facility] Blood platelet mean volumeOr dered By: Tru Avila on 01-29-2023 Platelet mean volume (Bld) [Entitic vol] 10.3 fL 6.2-12.0 [facility] Determination of erythrocyte mean corpuscular volume (MCV)Ordered By: Tru Avila on 01-29-2023 MCV (RBC) [Entitic vol] 89.0 fL 81-99 [facility] Hematocrit Auto (Bld) [Volum e fraction]Ordered By: Tru Avila on 01-29-2023 Hematocrit (Bld) [Volume fraction] 37.1 % 37-47 [facility] - Chemistry and C hemistry - challengeOrdered By: Tru Avila on 01-29-2023 ALP [Catalytic activity/Vol] 87 U/L 45-117 [facility] ALT [Catalytic activity/Vol] 22 U/L 13-56 [facility] CO2 [Moles/Vol] 27.0 mmol/L 21.0-32.0 [facility] Globulin (S) [Mass/Vol] 3.6 g/dL 2.2-4.2 [facility] Urea nitrogen/Creatinine [Mass ratio] 18.0 mg/mg 10-20 [facility] - Hematology and Cell countsOrdered By: Tru Avila on 01-29-2023 Erythrocyte distribution width (RBC) [Entitic vol] 43.2 fL 35.1-43.9 [facility] Erythrocyte distribution width (RBC) [Ratio] 13.2 % 11.6-14.6 [facility] Immature granulocytes/100 WBC (Bld) 0.200 % 0.0-0.9 [facility] Comment on above: IG% - Immature Granu locytes (promyelocytes, myelocytes and metamyelocytes) > 1% indicates that a LEFT SHIFT is Present. MCH (RBC) [Entitic mass] 28.8 pg 27.0-32.0 [facility] Nucleated RBC/100 WBC (Bld) [Ratio] 0 % 0-5 [facility] MCHC Auto (RBC) [Mass/Vol]Or dered By: Tru Avila on 01-29-2023 MCHC (RBC) [Mass/Vol] 32.3 g/dL 32-36 [facility] No Panel InformationOrdered By: Tru Avila on 01-29-2023 Estimated GFR (MDRD) Amer 79 mL/min >60 [facility] Comment on above: GFR Calc Estimated GFR (MDRD) Non-Af Amer 66 mL/min >60 [facility] Comment on above: Non- GFR Calc Thyroid Stimulating Hormone (TSH) 2.89 uIU/mL 0.358-3.74 [facility] Platelets bldOrdered By: Vicente Avila on 01-29-2023 Platelets (Bld) [#/Vol] 291 10*3/uL 150-450 [facility] Serum or plasma albumin inderjit urement (mass/volume)Ordered By: Tru Avila on 01-29-2023 Albumin [Mass/Vol] 3.7 g/dL 3.2-5.0 [facility] Serum or plasma albumin/glob ulin mass ratioOrdered By: Tru Avila on 01-29-2023 Albumin/Globulin [Mass ratio] 1.0 {ratio} 0.9-2.4 [facility] Serum or plasma calcium inderjit urement (mass/volume)Ordered By: Tru Avila on 01-29-2023 Calcium [Mass/Vol] 8.9 mg/dL 8.5-10.1 [facility] Serum or plasma creatinine m easurement (mass/volume)Ordered By: Tru Aivla on 01-29-2023 Creatinine [Mass/Vol] 0.89 mg/dL 0.55-1.02 [facility] Comment on above: The validity of the calculated GFR & GFRAA in patients over 70 years has not been determined. Clinical correlation is essential. Serum or plasma urea nitroge n measurement (mass/volume)Ordered By: Tru Avila on 01-29-2023 Urea nitrogen [Mass/Vol] 16 mg/dL 7-18 [facility] Thin prep Papanicolaou smear with manual screeningOrdered By: Tru Avila on 01-29-2023 Thin prep Papanicolaou smear with manual screening 14 U/L 15-37 [facility] Thin prep Papanicolaou smear with manual screening 7 5-15 [facility] CARSON SCREENINGon 03-26-2022 [facility] Laboratory - Chemistry and C hemistry - challengeon 03-14-2022 Bilirubin Ql (U) Negative [facility] Work Phone: Glucose Ql (U) Negative [facility] Work Phone: Ketones Ql (U) Negative [facility] Work Phone: pH (U) 6.5 [pH] [facility] Work Phone: Specific gravity (U) [Rel density] 1.005 [facility] Work Phone: Urobilinogen (U) [Mass/Vol] 0.1947534 mg/dL [facility] Work Phone: Laboratory - Hematology and Cell countson 03-14-2022 Hemoglobin Ql (U) Negative [facility] Work Phone: Laboratory - Specimen inform ationon 03-14-2022 Clarity (U) Clear [facility] Work Phone: [phone] Color (U) Colorless [facility] Work Phone: Laboratory - Urinalysison Nitrite Ql (U) Negative [facility] Work Phone: Protein Ql (U) Negative [facility] Work Phone: No Panel Informationon 03-14 Urine Leukocytes Negatve [facility] Work Phone: Urine Non-Hemolyzed Blood [facility] Work Phone: Laboratory - Chemistry and C hemistry - challengeon 01-14-2022 Bilirubin Ql (U) Negative [facility] Work Phone: Glucose Ql (U) Negative [facility] Work Phone: Ketones Ql (U) Negative [facility] Work Phone: pH (U) 7.0 [pH] [facility] Work Phone: [phone] Specific gravity (U) [Rel density] 1.015 [facility] Work Phone: [phone] Urobilinogen (U) [Mass/Vol] 0.2541146 mg/dL [facility] Work Phone: [phone] Laboratory - Hematology and Cell countson 01-14-2022 Hemoglobin Ql (U) Hemolyzed [facility] Work Phone: Laboratory - Specimen inform ationon 01-14-2022 Clarity (U) Clear [facility] Work Phone: [phone] Color (U) Yellow [facility] Work Phone: Laboratory - Urinalysison Nitrite Ql (U) Negative [facility] Work Phone: Protein Ql (U) Negative [facility] Work Phone: No Panel Informationon 01-14 Urine Leukocytes Positive [facility] Work Phone: Urine Non-Hemolyzed Blood Trace [facility] Work Phone: US ABD AORTAon 08-30-2020 US [...] IMPRESSION: No evidence for abdominal aortic aneurysm. [employer] Solution Architect: [facility] Transcribe Date/Time: Aug 30 2020 8:39A Dictated by : JOLENE MEDINA MD This examination was interpreted and the report reviewed and electronically signed by: JOLENE MEDINA MD on Aug 30 2020 8:40AM EST Normal [facility] Culture, urine Bacteria identified Cx Nom (U) Presumptive E. coli [facility] Work Phone: Bacteria identified Cx Nom (U) Mixed Gram Pos & Gram Neg Org [facility] Work Phone: Vital Signs Date Time Vital Sign Value Performing Clinician Faci yaya 01-29-2023 18:01-0400 Body height 165.1 cm [facility] 01-29-2023 18:01-0400 Body mass index (BMI) [Ratio] 30.4 kg/m2 [facility] 01-29-2023 18:01-0400 Body temperature 97.7 [degF] [facility] 01-29-2023 18:01-0400 Body weight 83 kg [facility] 01-29-2023 18:01-0400 Diastolic blood pressure 70 mm[Hg] [facility] 01-29-2023 18:01-0400 Heart rate 83 /min [facility] 01-29-2023 18:01-0400 Respiratory rate 18 /min [facility] 01-29-2023 18:01-0400 SaO2% (BldA) [Mass fraction] 96 % [facility] 01-29-2023 18:01-0400 Systolic blood pressure 138 mm[Hg] [facility] 03-14-2022 16:43-0400 Body height 165.1 cm [facility] Work Phone: 03-14-2022 16:43-0400 Body mass index (BMI) [Ratio] 30.9 kg/m2 [facility] Work Phone: 03-14-2022 16:43-0400 Body temperature 97.6 [degF] [facility] Work Phone: 03-14-2022 16:43-0400 Body weight 84.36 kg [facility] Work Phone: 03-14-2022 16:43-0400 Diastolic blood pressure 90 mm[Hg] [facility] Work Phone: 03-14-2022 16:43-0400 Heart rate 81 /min [facility] Work Phone: 03-14-2022 16:43-0400 Respiratory rate 18 /min [facility] Work Phone: 03-14-2022 16:43-0400 SaO2% (BldA) [Mass fraction] 98 % [facility] Work Phone: 03-14-2022 16:43-0400 Systolic blood pressure 122 mm[Hg] [facility] Work Phone: 01-14-2022 18:06-0400 Body height 165.1 cm [facility] Work Phone: 01-14-2022 18:06-0400 Body mass index (BMI) [Ratio] 30.7 kg/m2 [facility] Work Phone: 01-14-2022 18:06-0400 Body temperature 97.3 [degF] [facility] Work Phone: 01-14-2022 18:06-0400 Body weight 83.91 kg [facility] Work Phone: 01-14-2022 18:06-0400 Diastolic blood pressure 74 mm[Hg] [facility] Work Phone: 01-14-2022 18:06-0400 Heart rate 74 /min [facility] Work Phone: 01-14-2022 18:06-0400 Respiratory rate 18 /min [facility] Work Phone: 01-14-2022 18:06-0400 SaO2% (BldA) [Mass fraction] 96 % [facility] Work Phone: 01-14-2022 18:06-0400 Systolic blood pressure 154 mm[Hg] [facility] Work Phone: 11-26-2021 16:04-0400 Body mass index (BMI) [Ratio] 30.6 kg/m2 [facility] Work Phone: 11-26-2021 16:04-0400 Body temperature 97.5 [degF] [facility] Work Phone: 11-26-2021 16:04-0400 Body weight 83.46 kg [facility] Work Phone: 11-26-2021 16:04-0400 Diastolic blood pressure 60 mm[Hg] [facility] Work Phone: 11-26-2021 16:04-0400 Heart rate 72 /min [facility] Work Phone: 11-26-2021 16:04-0400 Respiratory rate 18 /min [facility] Work Phone: 11-26-2021 16:04-0400 SaO2% (BldA) [Mass fraction] 95 % [facility] Work Phone: 11-26-2021 16:04-0400 Systolic blood pressure 118 mm[Hg] [facility] Work Phone: Encounters Encounter Date Encounter Type Care Provider Facility Start: 03-01-2025 End: 03-01-2025 ambulatory Tru Avila GPS FIELD DATA COLLECTOR Facility:[facility] Start: 05-18-2024 ambulatory TRU AVILA Facil ity:[facility] Start: 03-17-2024 End: 03-17-2024 Emergency department patient visit TRU AVILA Facility:[facility] Start: 04-22-2023 Documentation procedure Mammog nimesh Coordinator [facility] Start: 04-22-2023 Letter encounter Mammography Coordinator [facility] NOT LISTED Start: 04-21-2023 End: 04-21-2023 Subsequent hospital visit by physician Mammo/Bone Density [facility] Comment on above: Breast cancer screen ing by mammogram [Z12.31] Start: 01-29-2023 End: 01-29-2023 ambulatory [facility] Work Phone: Start: 01-29-2023 End: 01-29-2023 Patient encounter procedure [facility] Work Phone: Start: 03-26-2022 End: 03-26-2022 Subsequent hospital visit by physician Mammo/Bone Density [facility] Comment on above: Encounter for screen ing mammogram for malignant neoplasm of breast [Z12.31] Start: 03-14-2022 End: 03-14-2022 ambulatory [facility] Work Phone: Start: 03-14-2022 End: 03-14-2022 Patient encounter procedure [facility] Start: 03-06-2022 End: 03-06-2022 ambulatory TRU AVILA Facility:[facility] Start: 03-06-2022 End: 03-06-2022 Patient encounter procedure Rahel Rajput OD Work Phone: Ophthalmology Comment on above: Posterior vitreous d etachment of both eyes (Primary Dx); Dry eye syndrome of both eyes; Pseudophakia of both eyes; Refractive error Start: 01-14-2022 End: 01-14-2022 Patient encounter procedure [facility] Procedures Date Procedure Procedure Detail Performing Clinician Start: 03-26-2022 Screening mammograph y bi 2-view breast inc cad Tru Avila APRN.COMMUNITY ASSISTANT Work Phone: Urine culture Plan of Treatment Date Care Activity Detail Author Start: 02-06-2023 Covid-19 Vaccine () Covid-19 Vaccine () [facility] Start: 02-06-2023 Influenza vaccination Influenza Vacc ine (#1) [facility] Start: 06-08-2022 Advance Directive Discussion Advance Directive Discussion [facility] Start: 06-08-2022 Depression Assessment [facility] Start: 02-06-2022 Influenza vaccination INFLUENZA (#1) [facility] Start: 08-16-2021 COVID-19 VACCINE (4 - Booster for Moderna series) COVID-19 VACCINE (4 - Booster for Moderna series) [facility] Start: 06-08-2021 ADVANCE DIRECTIVE DISCUSSION ADVANCE DIRECTIVE DISCUSSION [facility] Start: 06-08-2021 DEPRESSION ASSESSMENT DEPRESSION ASS ESSMENT [facility] Start: 09-22-2017 DIABETES SCREEN DIABETES SCREEN [facility] Start: 09-22-2017 Diabetes Screening Diabetes Screenin g [facility] Start: 11-22-2011 B[address] DENSITY BONE DENSITY [facility] Start: 11-22-2011 Bone Density Screening Bone Density Screening [facility] Start: 11-22-2011 Pneumococcal Vaccine : 65+ (1 - PCV) Pneumococcal Vaccine: 65+ (1 - PCV) [facility] Start: 11-22-2011 PNEUMOCOCCAL: 65+ (1 - PCV) PNEUMOCOCCAL: 65+ (1 - PCV) [facility] Start: 01-27-2011 LIPID SCREEN LIPID SCREEN [facility] Start: 2006 RSV Vaccine (1 - 1-d ose 60+ series) RSV Vaccine (1 - 1-dose 60+ series) [facility] Start: 1996 SHINGRIX VACCINE (1 of 2) SHINGRIX V ACCINE (1 of 2) [facility] Start: 11-22-1991 COLOGUARD (FIT-DNA) COLOGUARD (FIT-D NA) [facility] Start: 11-22-[address] [facility] Start: 11-22-1991 COLORECTAL CANCER SCREENING COLORECTAL CANCER SCREENING [facility] Start: 11-22-[address] [facility] Start: 11-22-1991 FECAL OCCULT BLOOD FECAL OCCULT BLOO D [facility] Start: 11-22-1991 SIGMOIDOSCOPY SIGMOIDOSCOPY [facility] Start: [address] [facility] Start: 1964 HEPATITIS C SCREENING HEPATITIS C [place] [facility] Payers Date Payer Category Payer Self-pay [id number] 2022 Private Health Insurance [id number] 2017 Private Health Insurance [id number] 2017 Private Health Insurance [id number] 2012 Medicare MEDICARE MEDICAR E A AND B [id number] 2012-Present [phone] [facility] [address] [place] [address] Medicare [id number] 2012 Medicare [id number] Private Health Insurance [facility] [id number] Unknown [id number] Social History Date Type Detail Facility Start: 08-27-2020 Tobacco smoking stat [facility] Unknown if ever smoked [facility] Start: 1945 Sex Assigned At Female [facility] Start: 03-06-2022 [facility] Start: 11-06-1976 End: 11-06-1984 History of tobacco use Current smoker [facility] Start: 11-06-1976 End: 11-06-1984 History of tobacco use Cigarette Smoker [facility] Start: 03-06-2022 Tobacco use and exposure Smokeless tobacco non-user 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 Start: 1945 Sex Assigned At Not on file [facility] Start: 02-23-2022 End: 03-26-2022 Exposure to SARS-CoV-2 (event) Not sure [facility] Start: 03-06-2022 End: 06-22-20[address] of [address] [facility] Start: 03-06-2022 End: 06-22-[address] [facility] Retired 07/07/[address] [facility] Medical Equipment Procedure Code Equipment Code Equipment Origin al Text Equipment Identifier Dates Lens Acrysof Iq Toric Stableforce 6mm 0 D +18.5 Diopter +1.5 Cylinder - [id number] Start: 07-21-2018 Lens Acrysof Iq Toric Stableforce 6mm 0 D +18.5 Diopter +1.5 Cylinder - [id number] Start: 08-04-2018 Clinical Notes 08-04-2018 to 05-18-2024 Letter - Coordinator, Mammography - 04/22/2023 1:34 PM Vishnu Gurrola RT(R) - 04/21/2023 10:00 AM RT Javi(R) - 03/26/2022 2:00 PM Ana Cristina Rajput OD - 03/06/2022 3:03 PM EDT Note Date & Type Note Facility 05-18-2024 Note HNO ID: [id number] Author: VISHNU GOMEZ RT(R) Service: Radiology Author Type: Technologist Type: Progress [...] PATIENT PRESENTS WITH AN IMPLANTABLE OR ATTACHED TENNIS DIRECTOR: No RADIOLOGY DEPARTMENT: Bone Density PERIPHERAL IV DATA: Not applicable SIGNED BY: RT Veronica(R) May 18, 2024 2:[address] [facility] 04-22-2023 Miscellaneous Notes [address] [address] April 22, 2023 PID: [id number] Sloane Montano [address] [place] [address] Dear Ms. Montano, We are pleased to inform you that [...] report will be kept on file at [facility] as part of your permanent medical record and are available for your continuing care. Thank you for allowing us to help in meeting your health care needs. Sincerely, Dr. Ferrell Interpreting Radiologist [facility] (Normal over 40) documented in this encounter [facility] 04-21-2023 History of Presen t illness [...] 2023 10:01 AM documented in this encounter [facility] 03-26-2022 History of Presen t illness [...] DATA: Not applicable SIGNED BY: RT Veronica(R) March 26, 2022 2:23 PM documented in this encounter [facility] 03-06-2022 Note HNO ID: [id number] Author: Rahel Rajput OD Service: ? Author Type: SOCK AND STOCKING IRONER Type: Progress Notes Filed: 03/06/2022 3:05 PM [...] the examination findings, diagnosis, and treatment options. [facility] 03-06-2022 History of Presen t illness [...] 4. Refractive error -Glasses Rx given today. Rahle Rajput, BABS I have reviewed, confirmed, and [...] and treatment options. documented in this encounter [facility] 03-06-2022 Instructions Rahel Rajput OD - 03/06/2022 3:01 PM EDT Please call the office immediately if you notice flashes of light, a sudden increase in floaters, or a sudden change in vision. Systane Complete Artificial Tears, 1 drop, three times a day, both eyes. Please call the office with decreased vision or increased eye pain. documented in this encounter [facility] 08-04-2018 History of Past i llness Narrative Problem Noted Date Resolved Date Combined form of age-related cataract, right eye 08/04/2018 08/04/2018 Combined forms of age-related cataract of left e ye 07/06/2018 07/21/2018 Overview: Added automatically from request for surgery [id number] Combined form of age-related cataract, left eye 07/06/2018 07/21/2018 Overview: Added automatically from request for surgery [id number] Combined forms of age-related cataract of right eye 07/05/2018 08/05/2018 Regular astigmatism of left eye 07/05/2018 07/21/2018 Regular astigmatism of right eye 07/05/2018 08/04/2018 documented as of this encounter (statuses as of 03/06/2022) [facility] History of Past illness Narrative* Problem Noted Date Resolved Date Combined form of age-related cataract, right eye 08/04/2018 08/04/2018 Combined forms of age-related cataract of left e ye 07/06/2018 07/21/2018 Overview: Added automatically from request for surgery [id number] Combined form of age-related cataract, left eye 07/06/2018 07/21/2018 Overview: Added automatically from request for surgery [id number] Combined forms of age-related cataract of right eye 07/05/2018 08/05/2018 Regular astigmatism of left eye 07/05/2018 07/21/2018 Regular astigmatism of right eye 07/05/2018 08/04/2018 documented as of this encounter (statuses as of 03/27/2022) [facility] History of Past illness Narrative* Problem Noted Date Diagnosed Date Resolved Date Combined form of age-related cataract, right eye 08/04/2018 08/04/2018 Combined forms of age-relate d cataract of left eye 07/06/2018 07/21/2018 Overview: Added automatically from request for surgery [id number] Combined form of age-related cataract, left eye 07/06/2018 07/21/2018 Overview: Added automatically from request for surgery [id number] Combined forms of age-relate d cataract of right eye 07/05/2018 08/05/2018 Regular astigmatism of left eye 07/05/2018 07/21/2018 Regular astigmatism of right eye 07/05/2018 08/04/2018 documented as of this encounter (statuses as of 04/22/2023) [facility] History of Past illness Narrative* Problem Noted Date Diagnosed Date Resolved Date Combined form of age-related cataract, right eye 08/04/2018 08/04/2018 Combined forms of age-relate d cataract of left eye 07/06/2018 07/21/2018 Overview: Added automatically from request for surgery [id number] Combined form of age-related cataract, left eye 07/06/2018 07/21/2018 Overview: Added automatically from request for surgery [id number] Combined forms of age-relate d cataract of right eye 07/05/2018 08/05/2018 Regular astigmatism of left eye 07/05/2018 07/21/2018 Regular astigmatism of right eye 07/05/2018 08/04/2018 documented as of this encounter (statuses as of 04/24/2023) 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 Diagnosis Onset Date Resolution Status Maxillary sinusitis, acute a cute Right acute otitis media acu te Cystitis acute Hematuria due to acute cystitis acute Right acute otitis media acu te Cystitis acute Dysuria acute [facility] Work Phone: Evaluation note* Diagnosis Onset Date Resolution Status Diverticulitis large intestine acute LLQ abdominal pain acute [facility] Work Phone: Summary Purpose Family History No [...] 1 Drop, BOTH EYES, DIRECTED, Starting on Thu03/06/22 at 1500, Until Thu03/07/22 at 025, Administer for applanation tonometry. In the event of a Fluress shortage, administer Ama-Fluor 1 drop into both eyes as directed for applanation tonometry, [facility] MED ORDERS Given 03/06/2022 3:00 PM EDT 1 Drop PHENYLephrine 2.5 % 1 Drop (AK-DILATE, CHRISTINA-SYNEPHRINE) 1 Drop, BOTH EYES, DIRECTED, Starting on Thu03/06/22 at 1500, Until Thu03/07/22 at 025, Administer for dilation PROTECT FROM LIGHT, [facility] MED ORDERS Given 03/06/2022 3:00 PM EDT 1 Drop tropicamide 1 % 1 Drop (MYDRIACYL) 1 Drop, BOTH EYES, DIRECTED, Starting on Thu03/06/22 at 1500, Until Thu03/07/22 at 025, Administer for dilation, [facility]IC MED ORDERS Given 03/06/2022 3:00 PM EDT 1 Drop Additional Source Comments INFORMATION SOURCE (unrecogn ized section and content) DATE CREATED AUTHOR 08/31/2020 [employer] DATE CREATED AUTHOR AUTHOR'S ORGANIZ ATION 03/10/2022 [facility] DATE CREATED AUTHOR AUTHOR'S ORGANIZ ATION 05/21/2024 [facility] DATE CREATED AUTHOR AUTHOR'S ORGANIZ ATION 04/02/2025 [facility] Goals (unrecognized section and content) Goals may [...] or prosecute any alcohol or drug abuse patient.[facility] the event this information is protected by the Federal Confidentiality of Alcohol and Drug Abuse Patient Records regulations: The Federal rules restrict any use of the information to criminally investigate or prosecute any alcohol or drug abuse patient.[facility] the event this information is protected by the Federal Confidentiality of Alcohol and Drug Abuse Patient Records regulations: The Federal rules restrict any use of the information to criminally investigate or prosecute any alcohol or drug abuse patient.[facility] the event this information is protected by the Federal Confidentiality of Alcohol and Drug Abuse Patient Records regulations: The Federal rules restrict any use of the information to criminally investigate or prosecute any alcohol or drug abuse patient.[facility] Reason for Visit (unrecogniz ed section and content) Reason Comments Floaters Both Eyes Flashes Both Eyes Care Teams (unrecognized sec tion and content) Route Sales Delivery Drivers Supervisor Relationship Specialty Start Date End Date Tru Avila, BANK CREDIT CARD COLLECTION CLERK.MAJO [address] [place] [address] PCP - General Family Medicine 12/19/15 Route Sales Delivery Drivers Supervisor Relationship Specialty Start Date End Date Tru Avila, BANK CREDIT CARD COLLECTION CLERKGHAZAL PCP - General Family Medicine 12/19/15 Team Status: Active Member Role Status Dates Tru Avila GPS FIELD DATA COLLECTOR, GPS FIELD DATA COLLECTOR-C Family Provider Active Tru Avila GPS FIELD DATA COLLECTOR, GPS FIELD DATA COLLECTOR-C Primary Care Provider Active Team Status: Inactive Member Role Status Dates Tru Avila GPS FIELD DATA COLLECTOR, GPS FIELD DATA COLLECTOR-C Primary Care Pr ovider, Attending Provider, Referring Provider Active Team Status: Inactive Member Role Status Dates Tru Avila GPS FIELD DATA COLLECTOR, GPS FIELD DATA COLLECTOR-C Primary Care Provider, Attend ing Provider Active Route Sales Delivery Drivers Supervisor Relationship Specialty Start Date End Date Tru Avila, BANK CREDIT CARD COLLECTION CLERK.COMMUNITY ASSISTANT [address] [place] [address] PCP - General Family Medicine 12/19/15 Route Sales Delivery Drivers Supervisor Relationship Specialty Start Date End Date Tru Avila, BANK CREDIT CARD COLLECTION CLERK.COMMUNITY ASSISTANT [address] [place] [address] PCP - General Family Medicine [...] BE BASED ON THE PRIMARY CLINICAL RECORDS. [facility], [facility]. provides no warranty or guarantee of the accuracy or completeness of information in this document.
[2025-05-16 22:42] LABS: Vitamin B12 241 pg/mL (180-914)
[2025-05-18 13:08] LABS: EBV Acute VCA IgM < 36.0 U/mL (0.0-35.9); EBV-VCA IgG 437.0 U/mL (0.0-17.9)
[2025-05-22 13:08] LABS: Vitamin D 1,25-Dihydroxy 48.1 pg/mL (24.8-81.5)
== END | disposition home or self-care (01) ==
PROVIDERS: PCP Nurse Practitioner; Visit Provider Nurse Practitioner
DX: D64.9 Anemia, unspecified (principal); E53.9 Vitamin B deficiency, unspecified; F32.A Depression, unspecified; E55.9 Vitamin D deficiency, unspecified; R25.2 Cramp and spasm; R61 Generalized hyperhidrosis
CPT/HCPCS: 82607; 82652; 86664; 86665